=== PATIENT | male | born 1980 | race Caucasian/White ===

== ENCOUNTER 2022-04-22 22:53 | Inpatient (IN) | payer BC, SELFPAY ==
[2022-04-22 23:09] VITALS: BMI 20.3
--- NOTE | 2022-04-22 23:25 | ED_ITS ---
Documented by User: JUAREZ Sanchez 04/24/22 07:20 HPI - Nausea/Vomiting/Diarrhea General: Chief complaint: Nausea/Vomiting/Diarrhea Stated complaint: dehydration, n/v Time Seen by Provider: 04/22/22 22:56 History of Present Illness: Patient is a 41-year-old male comes to the ED with nausea and vomiting. Patient has a history of Crohn's and has had a past bowel resection and currently has an ileostomy. Nausea and vomiting has been going on now for approximately 1 week. He says the nausea vomiting has been on and off for the past week but admits that he has been eating or drinking much since symptoms started. Today he started feeling shaky and generalized malaise and weakness. Endorses increased output and ileostomy bag. patient reports that he feels really dehydrated. He urinated once yesterday and today he produced just a little bit a urine. Denies any fevers, abdominal or back pain. Associated nausea: Yes Associated symtoms: Reports fatigue, malaise and nausea; Denies change in vision, chest pain, dysuria, headache(s) or palpitations Review of Systems Const: Reports: fatigue and malaise; Denies: fever(s) or chills Eyes: Denies: change in vision or eye discomfort ENMT: Denies: throat pain, odynophagia, nasal discharge or nasal congestion Card: Denies: chest pain, palpitations, edema, swelling of feet/ankles, dyspnea on exertion or orthopnea Resp: Denies: dyspnea, productive cough or non-productive cough GI: Reports: nausea and vomiting; Denies: abdominal pain, diarrhea, constipation or hematochezia : Reports: urinary frequency (Decreased urine output); Denies: flank pain, difficulty urinating, dysuria or hematuria Musc: Denies: neck pain, back pain or extremity swelling Skin/Breast: Denies: rash or new lesions Neuro: Reports: involuntary movements (Bilateral hands and arm shaking); Denies: headache(s), numbness in extremities or weakness in extremities PFSH ED PFSH: Medical History Acute renal failure History of Crohn's disease Surgical History H/O ileostomy History of bowel resection Family History Mother Cancer Other Diabetes Hypertension Social History Smoking and tobacco status: never smoked History of recent travel: No Physical Exam Const: COMMON NORMALS: patient oriented x3 and alert GENERAL APPEARANCE: ill appearing HENMT: COMMON NORMALS: normocephalic HEAD & SCALP: normocephalic MOUTH: Normal oral and palatal mucosa present and moist mucous membranes abnormal THROAT: posterior oropharynx normal and uvula midline Eye: COMMON NORMALS: Equal, round and reactive pupils present and conjunctivae normal CONJUNCTIVA: Yes conjunctivae normal PUPIL: Yes Equal, round and reactive pupils present Neck/C-Spine: COMMON NORMALS: supple GENERAL: Yes normal visual inspection Resp: COMMON NORMALS: normal respiratory effort, No retractions, No use of accessory muscles and clear to auscultation bilaterally AUSCULTATION: clear to auscultation bilaterally Cardio: COMMON NORMALS: regular rate, regular rhythm, S1 normal heart sound present, S2 normal heart sound present, No gallops present (Cardio), No clicks present (Cardio), No murmurs present (Cardio) and Peripheral pulses 2+ throughout RATE: regular rate RHYTHM: regular rhythm HEART SOUNDS: S1 normal heart sound present and S2 normal heart sound present PERIPHERAL PULSES: Peripheral pulses 2+ throughout GI: COMMON NORMALS: Normal to inspection, nondistended, normoactive bowel sounds present, Soft to palpation, non-tender and no masses INSPECTION: Yes GI ostomy present PALPATION: Yes Soft to palpation : COMMON NORMALS: Yes no CVA tenderness BLADDER/KIDNEY EXAM: Yes no CVA tenderness Back/Pelvis: COMMON NORMALS: no CVA tenderness Extremity: COMMON NORMALS: normal to inspection Neuro: COMMON NORMALS: patient oriented x3 and moves all extremities SENSORIUM/ORIENTATION: Yes alert Skin: NARRATIVE SKIN EXAM: Patient's skin appears very pale. GENERAL SKIN EXAM: dry skin and pallor Course Vital Signs: Vital signs: Vital Signs Temperature 98.0 F 04/27/22 04:00 Pulse Rate 102 H 04/27/22 07:14 Respiratory Rate 18 04/27/22 07:14 Blood Pressure 96/57 04/27/22 07:14 Pulse Oximetry 95 04/27/22 07:14 MDM - Nausea/Vomiting/Diarrhea Medical Decision Making Patient is a 41-year-old male comes to the ED with nausea and vomiting. Patient has a history of Crohn's and has an ileostomy. Nausea and vomiting symptoms have been going on for a week. Vitals are stable. Patient is pale and ill- appearing. Oral mucous membranes are dry. The rest of exam is benign. Sodium of 116, potassium 7.7 and creatinine of 14.3. EKG showed peaked T waves. After critical lab results, I spoke with Dr. Bingham and he was involved in patient's case due to patient's acuity. Patient was given 2 L of IV fluids, calcium gluconate, insulin, albuterol and D50 amp while here in the ED. Dr. Bingham spoke with Dr. Krause and patient was admitted to hospital. Lab Data I reviewed the patient's lab results. : 04/26/22 07:16 04/27/22 04:44 Radiology Impressions Abdomen/Pelvis CT 04/23/22 00:53 IMPRESSION: 1. One or more nonobstructing right renal calyceal stones. 2. Left ileostomy. 3. Probable previous takedown of right-sided ostomy. 4. Previous resection of the rectum and possibly the entire colon. 5. Right bowel anastomosis consistent with previous partial bowel resection. Laboratory Results WBC 9.7 10^3/uL (4.0-10.0) 04/22/22 21:48 RBC 4.31 10^6/uL (4.1-5.3) 04/22/22 21:48 Hgb 10.9 g/dL (11.7-16.6) L 04/22/22 21:48 Hct 33.4 % (42.0-52.0) L 04/22/22 21:48 MCV 77.5 fl (80-94) L 04/22/22 21:48 MCH 25.3 pg (28.0-34.0) L 04/22/22 21:48 MCHC 32.6 g/dL (30.0-36.0) 04/22/22 21:48 RDW 17.6 % (12.1-15.1) H 04/22/22 21:48 Plt Count 641 10^3/cmm (130-400) H 04/22/22 21:48 MPV 8.2 fL (7.4-10.4) 04/22/22 21:48 Neut % (Auto) 81.4 % 04/22/22 21:48 Lymph % (Auto) 6.5 % 04/22/22 21:48 Slope % (Auto) 10.3 % 04/22/22 21:48 Eos % (Auto) 0.2 % 04/22/22 21:48 Baso % (Auto) 0.3 % 04/22/22 21:48 Neut # (Auto) 7.88 10^3/uL (1.8-7.7) H 04/22/22 21:48 Lymph # (Auto) 0.6 10^3/uL (0.8-4.8) L 04/22/22 21:48 Slope # (Auto) 1.0 10^3/uL (0.2-0.9) H 04/22/22 21:48 Eos # (Auto) 0.0 10^3/uL (0.0-0.8) 04/22/22 21:48 Baso # (Auto) 0.0 10^3/uL (0.0-0.1) 04/22/22 21:48 Nucleated RBC % (auto) 0 % 04/22/22 21:48 Nucleated RBCs # 0.0 /100WBC 04/22/22 21:48 Sodium 116 mmol/L (136-145) L* 04/22/22 21:48 Potassium 7.7 mmol/L (3.5-5.1) H* 04/22/22 21:48 Chloride 60 mmol/L (98-107) L 04/22/22 21:48 Carbon Dioxide 21 mmol/L (22-29) L 04/22/22 21:48 Anion Gap 42.7 (5-19) H 04/22/22 21:48 BUN 109 mg/dL (6-20) H* 04/22/22 21:48 Creatinine 14.3 mg/dL (0.7-1.2) H* 04/22/22 21:48 GFR Calculation 3.9 mL/min (90-130) L 04/22/22 21:48 Glucose 177 mg/dL (65-115) H 04/22/22 21:48 POC Glucose 99 mg/dL (70-110) 04/23/22 02:17 Calculated Osmolality 281 mOsm/kg (285-295) L 04/22/22 21:48 Calcium 9.0 mg/dL (8.5-10.5) 04/22/22 21:48 Total Bilirubin 0.3 mg/dL (0.15-1.2) 04/22/22 21:48 AST 12 U/L (0-40) 04/22/22 21:48 ALT 12 U/L (0-41) 04/22/22 21:48 Alkaline Phosphatase 134 IU/L (40-130) H 04/22/22 21:48 Troponin T Baseline 33 ng/L (0-15) H 04/22/22 21:48 Troponin T 120 Minute 25.65 ng/L (0-15) H 04/23/22 00:38 Delta Troponin T -7.35 ABS# (0-10) L 04/23/22 00:38 Total Protein 10.1 g/dL (6.6-8.7) H 04/22/22 21:48 Albumin 4.7 g/dL (3.5-5.2) 04/22/22 21:48 Globulin 5.4 g/dL (1.3-4.6) H 04/22/22 21:48 Lipase 151 U/L (13-60) H 04/22/22 21:48 Urine Color Yellow (Yellow) 04/23/22 02:40 Urine Appearance Clear (CLEAR) 04/23/22 02:40 Urine pH 7 (5-7) 04/23/22 02:40 Ur Specific [place] 1.010 (1.005-1.030) 04/23/22 02:40 Urine Protein 1+ (Negative) H 04/23/22 02:40 Urine Glucose (UA) Norm (Normal) 04/23/22 02:40 Urine Ketones Negative (Negative) 04/23/22 02:40 Urine Blood 3+ (Negative) H 04/23/22 02:40 Urine Nitrate Negative (Negative) 04/23/22 02:40 Urine Bilirubin Neg (Negative) 04/23/22 02:40 Urine Urobilinogen Norm mg/dL (Negative) 04/23/22 02:40 Ur Leukocyte Esterase Negative (Negative) 04/23/22 02:40 Urine RBC 0-4 /hpf (0-2) H 04/23/22 02:40 Urine WBC 0-4 /hpf (0-5) H 04/23/22 02:40 Ur Eosinophil Smear 0 (0-0) 04/23/22 02:40 Ur Squamous Epith Cells 0-4 /hpf (0-5) H 04/23/22 02:40 Amorphous Sediment 1+ /hpf 04/23/22 02:40 Urine Bacteria Trace /hpf (NONE) 04/23/22 02:40 Hyaline Casts 0-4 /lpf H 04/23/22 02:40 Urine Mucus Trace /hpf 04/23/22 02:40 Urine Eosinophils No eosinophils seen 04/23/22 02:40 Urine Osmolality 347 mOsm/kg (50-1200) 04/23/22 02:40 Ur Random Creatinine 92 mg/dL (20-320) 04/23/22 02:40 Ur Random Albumin 14 % 04/23/22 02:40 U Random Total Protein 115 mg/dL (5-25) H 04/23/22 02:40 Ur Random Sodium 13 mmol/L 04/23/22 02:40 Ur Random Potassium 84 mmol/L 04/23/22 02:40 Ur Random Chloride 14 mmol/L 04/23/22 02:40 Urine Creatinine 94 mg/dL (39-259) 04/23/22 02:40 Protein/Creatinin Ratio 1250 mg/g creat (22-128) H 04/23/22 02:40 Protein/Creat Ratio 24h 1.250 (0.022-0.128) H 04/23/22 02:40 U Random m-0-Oajtzzhr % 14 % 04/23/22 02:40 U Random r-7-Uyznhmmv % 29 % 04/23/22 02:40 U Random Beta Globulin 32 % 04/23/22 02:40 U Random Gamma Glob 11 % 04/23/22 02:40 U Abnormal Prot Band 1 Not Reportable 04/23/22 02:40 U Abnormal Prot Band 2 Not Reportable 04/23/22 02:40 U Abnormal Prot Band 3 Not Reportable 04/23/22 02:40 Urine PEP Interpret See note 04/23/22 02:40 EKG Data EKG 1: EKG interpretation date: 04/22/22 Interpretation: Sinus rhythm 99 bpm, peaked T waves noted. No ST segment elevation or depression seen. Discharge Plan Discharge Patient Disposition: Admitted As Inpatient Admit Provider: Ethan Krause Clinical Impression: Acute renal failure, Hyperkalemia, Metabolic acidosis Condition: Stable Coding Level of Care Code ED Oil Laboratory Analyst for Chg Fwd Exam Comprehensive Documented by User: Hao Bingham, 04/27/22 08:16 HPI - Nausea/Vomiting/Diarrhea General: Chief complaint: Nausea/Vomiting/Diarrhea Stated complaint: dehydration, n/v Time Seen by Provider: 04/22/22 22:56 PFSH ED PFSH: Medical History Acute renal failure History of Crohn's disease Surgical History H/O ileostomy History of bowel resection Family History Mother Cancer Other Diabetes Hypertension Social History Smoking and tobacco status: never smoked History of recent travel: No Course Vital Signs: Vital signs: Vital Signs Temperature 98.0 F 04/27/22 04:00 Pulse Rate 102 H 04/27/22 07:14 Respiratory Rate 18 04/27/22 07:14 Blood Pressure 96/57 04/27/22 07:14 Pulse Oximetry 95 04/27/22 07:14 MDM - Nausea/Vomiting/Diarrhea Medical Decision Making Patient is a 41-year-old male comes to the ED with nausea and vomiting. Patient has a history of Crohn's and has an ileostomy. Nausea and vomiting symptoms have been going on for a week. Vitals are stable. Patient is pale and ill- appearing. Oral mucous membranes are dry. The rest of exam is benign. Sodium of 116, potassium 7.7 and creatinine of 14.3. EKG showed peaked T waves. After critical lab results, I spoke with Dr. Bingham and he was involved in patient's case due to patient's acuity. Patient was given 2 L of IV fluids, calcium gluconate, insulin, albuterol and D50 amp while here in the ED. Dr. Bingham spoke with Dr. Krause and patient was admitted to hospital. This patient was originally seen by Mr. Jason PA-C. I agree with this history, evaluation, and treatment. Lab Data : 04/26/22 07:16 04/27/22 04:44 Radiology Impressions Abdomen/Pelvis CT 04/23/22 00:53 IMPRESSION: 1. One or more nonobstructing right renal calyceal stones. 2. Left ileostomy. 3. Probable previous takedown of right-sided ostomy. 4. Previous resection of the rectum and possibly the entire colon. 5. Right bowel anastomosis consistent with previous partial bowel resection. Laboratory Results WBC 9.7 10^3/uL (4.0-10.0) 04/22/22 21:48 RBC 4.31 10^6/uL (4.1-5.3) 04/22/22 21:48 Hgb 10.9 g/dL (11.7-16.6) L 04/22/22 21:48 Hct 33.4 % (42.0-52.0) L 04/22/22 21:48 MCV 77.5 fl (80-94) L 04/22/22 21:48 MCH 25.3 pg (28.0-34.0) L 04/22/22 21:48 MCHC 32.6 g/dL (30.0-36.0) 04/22/22 21:48 RDW 17.6 % (12.1-15.1) H 04/22/22 21:48 Plt Count 641 10^3/cmm (130-400) H 04/22/22 21:48 MPV 8.2 fL (7.4-10.4) 04/22/22 21:48 Neut % (Auto) 81.4 % 04/22/22 21:48 Lymph % (Auto) 6.5 % 04/22/22 21:48 Slope % (Auto) 10.3 % 04/22/22 21:48 Eos % (Auto) 0.2 % 04/22/22 21:48 Baso % (Auto) 0.3 % 04/22/22 21:48 Neut # (Auto) 7.88 10^3/uL (1.8-7.7) H 04/22/22 21:48 Lymph # (Auto) 0.6 10^3/uL (0.8-4.8) L 04/22/22 21:48 Slope # (Auto) 1.0 10^3/uL (0.2-0.9) H 04/22/22 21:48 Eos # (Auto) 0.0 10^3/uL (0.0-0.8) 04/22/22 21:48 Baso # (Auto) 0.0 10^3/uL (0.0-0.1) 04/22/22 21:48 Nucleated RBC % (auto) 0 % 04/22/22 21:48 Nucleated RBCs # 0.0 /100WBC 04/22/22 21:48 Sodium 116 mmol/L (136-145) L* 04/22/22 21:48 Potassium 7.7 mmol/L (3.5-5.1) H* 04/22/22 21:48 Chloride 60 mmol/L (98-107) L 04/22/22 21:48 Carbon Dioxide 21 mmol/L (22-29) L 04/22/22 21:48 Anion Gap 42.7 (5-19) H 04/22/22 21:48 BUN 109 mg/dL (6-20) H* 04/22/22 21:48 Creatinine 14.3 mg/dL (0.7-1.2) H* 04/22/22 21:48 GFR Calculation 3.9 mL/min (90-130) L 04/22/22 21:48 Glucose 177 mg/dL (65-115) H 04/22/22 21:48 POC Glucose 99 mg/dL (70-110) 04/23/22 02:17 Calculated Osmolality 281 mOsm/kg (285-295) L 04/22/22 21:48 Calcium 9.0 mg/dL (8.5-10.5) 04/22/22 21:48 Total Bilirubin 0.3 mg/dL (0.15-1.2) 04/22/22 21:48 AST 12 U/L (0-40) 04/22/22 21:48 ALT 12 U/L (0-41) 04/22/22 21:48 Alkaline Phosphatase 134 IU/L (40-130) H 04/22/22 21:48 Troponin T Baseline 33 ng/L (0-15) H 04/22/22 21:48 Troponin T 120 Minute 25.65 ng/L (0-15) H 04/23/22 00:38 Delta Troponin T -7.35 ABS# (0-10) L 04/23/22 00:38 Total Protein 10.1 g/dL (6.6-8.7) H 04/22/22 21:48 Albumin 4.7 g/dL (3.5-5.2) 04/22/22 21:48 Globulin 5.4 g/dL (1.3-4.6) H 04/22/22 21:48 Lipase 151 U/L (13-60) H 04/22/22 21:48 Urine Color Yellow (Yellow) 04/23/22 02:40 Urine Appearance Clear (CLEAR) 04/23/22 02:40 Urine pH 7 (5-7) 04/23/22 02:40 Ur Specific [place] 1.010 (1.005-1.030) 04/23/22 02:40 Urine Protein 1+ (Negative) H 04/23/22 02:40 Urine Glucose (UA) Norm (Normal) 04/23/22 02:40 Urine Ketones Negative (Negative) 04/23/22 02:40 Urine Blood 3+ (Negative) H 04/23/22 02:40 Urine Nitrate Negative (Negative) 04/23/22 02:40 Urine Bilirubin Neg (Negative) 04/23/22 02:40 Urine Urobilinogen Norm mg/dL (Negative) 04/23/22 02:40 Ur Leukocyte Esterase Negative (Negative) 04/23/22 02:40 Urine RBC 0-4 /hpf (0-2) H 04/23/22 02:40 Urine WBC 0-4 /hpf (0-5) H 04/23/22 02:40 Ur Eosinophil Smear 0 (0-0) 04/23/22 02:40 Ur Squamous Epith Cells 0-4 /hpf (0-5) H 04/23/22 02:40 Amorphous Sediment 1+ /hpf 04/23/22 02:40 Urine Bacteria Trace /hpf (NONE) 04/23/22 02:40 Hyaline Casts 0-4 /lpf H 04/23/22 02:40 Urine Mucus Trace /hpf 04/23/22 02:40 Urine Eosinophils No eosinophils seen 04/23/22 02:40 Urine Osmolality 347 mOsm/kg (50-1200) 04/23/22 02:40 Ur Random Creatinine 92 mg/dL (20-320) 04/23/22 02:40 Ur Random Albumin 14 % 04/23/22 02:40 U Random Total Protein 115 mg/dL (5-25) H 04/23/22 02:40 Ur Random Sodium 13 mmol/L 04/23/22 02:40 Ur Random Potassium 84 mmol/L 04/23/22 02:40 Ur Random Chloride 14 mmol/L 04/23/22 02:40 Urine Creatinine 94 mg/dL (39-259) 04/23/22 02:40 Protein/Creatinin Ratio 1250 mg/g creat (22-128) H 04/23/22 02:40 Protein/Creat Ratio 24h 1.250 (0.022-0.128) H 04/23/22 02:40 U Random a-2-Ezemdupk % 14 % 04/23/22 02:40 U Random q-2-Lhujljqs % 29 % 04/23/22 02:40 U Random Beta Globulin 32 % 04/23/22 02:40 U Random Gamma Glob 11 % 04/23/22 02:40 U Abnormal Prot Band 1 Not Reportable 04/23/22 02:40 U Abnormal Prot Band 2 Not Reportable 04/23/22 02:40 U Abnormal Prot Band 3 Not Reportable 04/23/22 02:40 Urine PEP Interpret See note 04/23/22 02:40 Discharge Plan Discharge Patient Disposition: Admitted As Inpatient Admit Provider: Ethan Krause Clinical Impression: Acute renal failure, Hyperkalemia, Metabolic acidosis Condition: Stable Coding Level of Care Code ED Oil Laboratory Analyst for Chg Fwd Exam Comprehensive
--- NOTE | 2022-04-22 23:28 | ECG_ITS ---
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 Measurements Intervals [place] Rate: 99 P: 83 DC: 183 QRS: 49 QRSD: 101 T: 54 QT: 337 QTc: 434 Interpretive Statements SINUS RHYTHM Peaked T waves No previous ECG available for comparison Electronically Signed On 04-23-2022 9:23:07 CDT by Alejandro Ballesteros M.D. [id number] f
[2022-04-22 23:43] LABS: Basophils % 0.3 %; Eosinophils % 0.2 %; Hematocrit 33.4 % (42.0-52.0); Hemoglobin 10.9 g/dL (11.7-16.6); Lymphocytes # 0.6 10^3/uL (0.8-4.8); Lymphocytes % 6.5 %; Mean Corpuscular HGB Conc 32.6 g/dL (30.0-36.0); Mean Corpuscular Hemoglobin 25.3 pg (28.0-34.0); Mean Corpuscular Volume 77.5 fl (80-94); Mean Platelet Volume 8.2 fL (7.4-10.4); Monocytes % 10.3 %; Neutrophils # 7.88 10^3/uL (1.8-7.7); Neutrophils % 81.4 %; Nucleated Red Blood Cells % 0 %; Platelet Count 641 10^3/cmm (130-400); Red Blood Count 4.31 10^6/uL (4.1-5.3); Red Cell Distribution Width 17.6 % (12.1-15.1); White Blood Count 9.7 10^3/uL (4.0-10.0)
[2022-04-23] VITALS (27 sets, daily range): BP systolic 84–120; BP diastolic 42–70; PULSE 86–124; RESP 11–25; TEMP 36.8–37.1; O2SAT 94–100
[2022-04-23] LABS: Troponin(5th) Baseline 33 ng/L (0-15)
[2022-04-23 00:02] LABS: Alanine Aminotransferase 12 U/L (0-41); Albumin Level 4.7 g/dL (3.5-5.2); Alkaline Phosphatase 134 IU/L (40-130); Anion Gap 42.7 (5-19); Aspartate Amino Transferase 12 U/L (0-40); Carbon Dioxide 21 mmol/L (22-29); Chloride 60 mmol/L (98-107); Globulin 5.4 g/dL (1.3-4.6); Glomerular Filtration Rate 3.9 mL/min (90-130); Glucose 177 mg/dL (65-115); Lipase 151 U/L (13-60); Osmolality Calculated 281 mOsm/kg (285-295); Total Bilirubin 0.3 mg/dL (0.15-1.2); Total Protein 10.1 g/dL (6.6-8.7)
[2022-04-23 00:05] LABS: Blood Urea Nitrogen 109 mg/dL (6-20); Potassium 7.7 mmol/L (3.5-5.1); Sodium 116 mmol/L (136-145)
[2022-04-23] MEDS: ondansetron 2 mg/ML SDV 2 mL 4 MG IVP (00:19)
[2022-04-23] MEDS: insulin regular-human 100 units/1 mL 10 UNIT IVP (00:36)
[2022-04-23] MEDS: sodium chloride 0.9% 1,000 ML 999 ML IV (00:36)
[2022-04-23] MEDS: dextrose 50% syringe 50 mL IVP ×2 (00:38→01:53)
[2022-04-23] MEDS: calcium gluconate 0.9% NaCL 1 GM/50 ML PREMIX IV (00:39)
--- NOTE | 2022-04-23 00:53 | CTR_ITS ---
PROCEDURE INFORMATION: Exam: CT Abdomen And Pelvis Without Contrast Exam date and time: 04/23/2022 2:06 AM Age: 41 years old Clinical indication: Abnormal findings; Abnormal lab test; Abnormal kidney function lab tests; Vomiting; Prior surgery; Surgery date: 6+ months; Surgery type: Bowel resection, ileostomy; Additional info: Vomiting, acute renal failure TECHNIQUE: Imaging protocol: Computed tomography of the abdomen and pelvis without contrast. Radiation optimization: All CT scans at this facility use at least one of these dose optimization techniques: automated exposure control; mA and/or kV adjustment per patient size (includes targeted exams where dose is matched to clinical indication); or iterative reconstruction. COMPARISON: No relevant prior studies available. RADIATION DOSE METRICS: Total DLP (mGy-cm): 731.49 FINDINGS: Liver: Normal. No mass. Gallbladder and bile ducts: Normal. No calcified stones. No ductal dilation. Pancreas: Normal. No ductal dilation. Spleen: Normal. No splenomegaly. Adrenal glands: Normal. No mass. Kidneys and ureters: One or more nonobstructing right renal calyceal stones. Stomach and bowel: Left ileostomy. Probable previous takedown of right-sided ostomy. Previous resection of the rectum and possibly the entire colon. Right bowel anastomosis consistent with previous partial bowel resection. Appendix: No evidence of appendicitis. Intraperitoneal space: Unremarkable. No free air. No significant fluid collection. Vasculature: Unremarkable. No abdominal aortic aneurysm. Lymph nodes: Unremarkable. No enlarged lymph nodes. Urinary bladder: Unremarkable as visualized. Reproductive: Unremarkable as visualized. Bones/joints: Levoscoliosis. Soft tissues: Unremarkable. CT/CT abdomen pelvis [facility] [id number] IMPRESSION: 1. One or more nonobstructing right renal calyceal stones. 2. Left ileostomy. 3. Probable previous takedown of right-sided ostomy. 4. Previous resection of the rectum and possibly the entire colon. 5. Right bowel anastomosis consistent with previous partial bowel resection.
[2022-04-23 01:10] LABS: Glucose Point of Care 139 mg/dL (70-110)
[2022-04-23 01:12] LABS: Troponin 5 2HR 25.65 ng/L (0-15)
[2022-04-23 01:28] LABS: Glucose Point of Care 75 mg/dL (70-110)
--- NOTE | 2022-04-23 01:28 | ECG_ITS ---
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 Measurements Intervals [place] Rate: 111 P: 84 UT: 163 QRS: 42 QRSD: 68 T: 60 QT: 300 QTc: 408 Interpretive Statements SINUS TACHYCARDIA LOW QRS VOLTAGE IN EXTREMITY LEADS [QRS DEFLECTION < 0.5 mV IN LIMB LEADS] Peaked T waves ABNORMAL RHYTHM ECG Compared to ECG 04/22/2022 23:13:08 Low QRS voltage now present Sinus rhythm no longer present Electronically Signed On 04-23-2022 9:28:46 CDT by Alejandro Ballesteros M.D. [id number]
[2022-04-23] MEDS: levalbuterol 0.63 mg/3 mL Neb INHALATION (01:30)
--- NOTE | 2022-04-23 02:36 | PM.HP ---
Providers/Chief Complaint Primary Care Provider: Karen Christianson MD Chief Complaint: dehydration, n/v History of Present Illness Amilcar Chapin is a 41 year old male with a past medical history of Crohn's disease, diagnosed when he was 12 years old, has status post colectomy, ileostomy bag in place, history of type 2 diabetes mellitus, intolerant to metformin, not on insulin, history of chronic prednisone use, secondary to Crohn's disease, stopped in July who presents [facility] due to fatigue, malaise, lightheadedness, dehydration, nausea, vomiting. Patient tells me that recently he has not been feeling well, he does not exactly know why, but just has not been feeling well has been having intermittent lightheadedness, dizziness. No chest pain. No palpitations. No shortness of breath. No abdominal pain. No dysuria. No hematuria. But he does tell me that he felt that he was not hydrating enough, he felt nauseous and felt like he was going to vomit. No sick contacts, no recent travel. No history of acute kidney injury. No history of renal failure. Review of Systems Const: Reports: fatigue and malaise; Denies: fever(s) or chills Eyes: Denies: change in vision or blurry vision ENMT: Denies: nasal congestion Card: Reports: pre-syncope; Denies: chest pain or palpitations Resp: Denies: dyspnea, productive cough, non-productive cough or wheezing GI: Reports: nausea and vomiting; Denies: abdominal pain, hematemesis, diarrhea, constipation, hematochezia or melena : Denies: flank pain, difficulty urinating, dysuria or urinary frequency Musc: Denies: neck pain or back pain Skin/Breast: Denies: rash Neuro: Denies: headache(s), dizziness or vertigo Endo: Denies: polyuria or polydipsia Medications/Allergies Home Medications Medication Instructions Recorded Confirmed Last Taken Type ascorbic acid (vitamin C) 500 mg mg PO DAILY cap 05/04/21 12/12/21 Unknown History capsule calcium carbonate 500 mg calcium 500 mg PO DAILY 05/04/21 12/12/21 Unknown History (1,250 mg) tablet (Calcium 500) cyanocobalamin (vitamin B-12) 1,000 mcg PO DAILY 05/04/21 12/12/21 Unknown History 1,000 mcg/mL oral drops fluoxetine 20 mg capsule (Prozac) 20 mg PO DAILY 05/04/21 12/12/21 Unknown History folic acid 1 mg tablet 1 mg PO DAILY 05/04/21 12/12/21 Unknown History multivitamin (Daily Multi-Vitamin) 1 tab PO DAILY 05/04/21 12/12/21 Unknown History ferrous fumarate 324 mg (106 mg 324 mg PO BID tab 07/04/21 12/12/21 Unknown History iron) tablet mecobalamin (vitamin B12) 1,000 1,000 mcg SUBLINGUAL DAILY 07/04/21 12/12/21 Unknown History mcg disintegrating tablet,sublingual clindamycin phosphate 1 % lotion 1 applic TOPICAL QAM #60 ml 11/10/21 12/12/21 Unknown Rx doxycycline hyclate 100 mg capsule 100 mg PO DAILY #30 cap 12/12/21 12/12/21 Unknown Rx Allergies Allergy/AdvReac Type Severity Reaction Status Date / Time ciprofloxacin [From Cipro] Allergy perpheral Verified 12/12/21 08:19 neuropathy levofloxacin [From Levaquin] Allergy unk Verified 12/12/21 08:19 penicillin G Allergy hives Verified 12/12/21 08:19 sulfamethoxazole Allergy Hives Verified 12/12/21 08:19 [From Bactrim] trimethoprim [From Bactrim] Allergy Hives Verified 12/12/21 08:19 encort Allergy suicidal Uncoded 12/12/21 08:19 thoughts PFSH Acute PFSH: Medical History (Updated 04/23/22 @ 02:42 by Ethan Krause MD) Acute renal failure History of Crohn's disease Surgical History H/O ileostomy History of bowel resection Family History Mother Cancer Other Diabetes Hypertension Social History Smoking and tobacco status: never smoked History of recent travel: No Vitals/I&O/Wt Last Vital Signs Pulse 110 H 04/23/22 01:37 Resp 16 04/23/22 01:33 Pulse Ox 100 04/23/22 01:33 Weight last 48 hrs Weight 58.967 kg Physical Exam Const: COMMON NORMALS: no acute distress and patient oriented x3 HENMT: COMMON NORMALS: normocephalic HEAD & SCALP: normocephalic Eye: COMMON NORMALS: Equal, round and reactive pupils present and EOMs intact bilaterally Neck/C-Spine: COMMON NORMALS: no JVD Resp: COMMON NORMALS: normal respiratory effort, No retractions, No use of accessory muscles and clear to auscultation bilaterally AUSCULTATION: clear to auscultation bilaterally Cardio: COMMON NORMALS: no JVD, regular rate, regular rhythm, S1 normal heart sound present and S2 normal heart sound present RATE: regular rate RHYTHM: regular rhythm HEART SOUNDS: S1 normal heart sound present and S2 normal heart sound present GI: COMMON NORMALS: Normal to inspection, nondistended, normoactive bowel sounds present, Soft to palpation, non-tender, No hepatosplenomegaly present, no masses and no bruits PALPATION: Yes Soft to palpation and Yes No hepatosplenomegaly present OTHER: Colostomy bag in place ileostomy bag in place Extremity: COMMON NORMALS: capillary refill normal, no clubbing, cyanosis or edema, no calf tenderness and no pedal edema Neuro: COMMON NORMALS: patient oriented x3, CN's II-XII intact bilaterally and moves all extremities Psych: COMMON NORMALS: mental status grossly normal Data : 04/22/22 21:48 04/22/22 21:48 A&P Assessment and plan (1) Hyperkalemia: Status: Acute (2) Hyponatremia: Status: Acute (3) Metabolic acidosis: Status: Acute (4) Obstructive uropathy: Status: Acute (5) Acute renal failure: Status: Acute (6) Crohn disease: Status: Acute Plan Acute renal failure, - hyperkalemia, metabolic acidosis, hyponatremia, hypoglycemia -Etiology unclear, possibly secondary to dehydration -Does have enlarged bladder on CT imaging, [facility] possible obstructive uropathy -Does have Crohn's disease -Possibly will require a renal biopsy -Start IV fluids -Is hypoglycemic, D5 normal saline -Serum sodiums every 4 hours -Neurochecks -Will need to consult nephrology in the a.m. -Has received calcium gluconate, dextrose, fluids -I have confirmed with patient that he is DNR/DNI, father at bedside -Lovenox for DVT prophylaxis Attestations Medical Necessity Statement*: Patient requires hospitalization inpatient, greater than 2 minutes, acute renal failure, hypoglycemia Coding Level of Care Code Acute Electronic Coils Supervisor for Chg Fwd Diagnoses Hyperkalemia E87.5 Hyponatremia E87.1 Metabolic acidosis E87.2 Obstructive uropathy N13.9 Acute renal failure N17.9 Crohn disease K50.90
[2022-04-23 03:08] LABS: Add Urine Microscopic? YES; Amorphous Sediment Urine 1+ /hpf; Bacteria Urine TRACE /hpf; Bilirubin Urine Neg (Negative); Blood Urine 3+ (Negative); Glucose Urine UA Norm (Normal); Hyaline Casts Urine 0-4 /lpf; Ketones Urine Negative (Negative); Leukocyte Esterase Urine Negative (Negative); Mucus Urine TRACE /hpf; Nitrate Urine Negative (Negative); Protein Urine 1+ (Negative); RBC Urine 0-4 /hpf (0-2); Squamous Epithelial Cell Urine 0-4 /hpf (0-5); Urine Appearance Clear (CLEAR); Urine Color Yellow (Yellow); Urobilinogen Urine Norm (Negative); WBC Urine 0-4 /hpf (0-5); pH Urine 7 (5-7)
[2022-04-23 03:09] LABS: Add Urine Culture? No
[2022-04-23 03:17] LABS: Potassium, Radom Urine 84 mmol/L; Urine Creatinine 94 mg/dL (39-259); Urine Random Chloride 14 mmol/L; Urine Random Sodium 13 mmol/L
[2022-04-23] MEDS: dextrose 5% 1,000 ML 150 ML IV (03:18)
[2022-04-23 03:31] LABS: Eosinophil Urine No Eosinophils Seen; Urine Eosinophil Count 0 (0-0)
[2022-04-23 04:17] LABS: Glucose Point of Care 103 mg/dL (70-110)
--- NOTE | 2022-04-23 04:30 | PC.NURSE ---
Pt has chronic wound on left buttocks, leakage from previous rectal surgery. Pt educated regarding enlarged bladder, obstructive uropathy, and possible bladder rupture. Pt continues to refuse aleman catheter. Pt educated regarding SCD use and Lovenox for DVT prophylaxis, but continues to refuse both. Pt has tremors of all extremities and reports that it is related to anxiety.
[2022-04-23] MEDS: dextrose 5% 1,000 ML 125 ML IV (04:52)
--- NOTE | 2022-04-23 04:53 | PC.NURSE ---
IVF infusing at 125 mls/hr.
[2022-04-23] MEDS: pantoprazole 40 mg SDV IVP (04:56)
--- NOTE | 2022-04-23 05:28 | ECG_ITS ---
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 Measurements Intervals [place] Rate: 103 P: 99 WY: 143 QRS: 157 QRSD: 74 T: 119 QT: 333 QTc: 436 Interpretive Statements SINUS TACHYCARDIA ARM LEADS REVERSED [INVERTED P AND QRS IN I] ABNORMAL RHYTHM ECG Compared to ECG 04/23/2022 01:21:51 No significant changes Electronically Signed On 04-23-2022 9:29:32 CDT by Alejandro Ballesteros M.D. [id number]
--- NOTE | 2022-04-23 06:00 | PC.NURSE ---
Pt has no complaints of nausea at this time. Pt continues to refuse aleman catheter, SCDs, and Lovenox. Education reinforced.
[2022-04-23 06:22] LABS: Erythrocyte Sedimentation Rate 49 mm/hr (0-10)
[2022-04-23 06:26] LABS: Ketone (Acetest) Serum Negative (Negative)
[2022-04-23 06:28] LABS: Troponin 5 6HR 35.51 ng/L (0-15)
[2022-04-23 06:29] LABS: Troponin 5 6HR Delta 2.51 ng/L (0-12)
[2022-04-23 06:31] LABS: Glucose Point of Care 94 mg/dL (70-110)
[2022-04-23 06:35] LABS: Alanine Aminotransferase 8 U/L (0-41); Albumin Level 3.3 g/dL (3.5-5.2); Alkaline Phosphatase 87 IU/L (40-130); Anion Gap 26.9 (5-19); Aspartate Amino Transferase 13 U/L (0-40); C Reactive Protein 58.1 mg/L (0.0-4.9); Calcium 7.4 mg/dL (8.5-10.5); Carbon Dioxide 23 mmol/L (22-29); Chloride 76 mmol/L (98-107); Estmated Average Glucose 189; Globulin 3.6 g/dL (1.3-4.6); Glomerular Filtration Rate 4.5 mL/min (90-130); Glucose 79 mg/dL (65-115); Hemoglobin A1C 8.2 % (4.0-6.0); Lactic Sepsis W/Reflex 0.9 mmol/L (0.5-2.2); Magnesium 1.8 mg/dL (1.7-2.3); Osmolality Calculated 279 mOsm/kg (285-295); Potassium 4.9 mmol/L (3.5-5.1); Sodium 121 mmol/L (136-145); Thyroid Stimulating Hormone 0.55 uIU/mL (0.27-4.20); Total Bilirubin 0.3 mg/dL (0.15-1.2); Total Protein 6.9 g/dL (6.6-8.7)
--- NOTE | 2022-04-23 06:50 | PC.NURSE ---
Bedside report completed with VLAD Epperson
[2022-04-23 06:56] LABS: Blood Urea Nitrogen 92 mg/dL (6-20); Phosphorus 13.2 mg/dL (2.5-4.5)
[2022-04-23 07:00] LABS: Glucose Point of Care 99 mg/dL (70-110)
[2022-04-23 08:16] LABS: Sodium 120 mmol/L (136-145)
--- NOTE | 2022-04-23 10:33 | P.CONIM_ITS ---
Providers/Reason For Consult Consulting Physician/Specialty*: Nephro Reason for Consult*: AMRCIE Attending Physician: Ethan Krause MD Primary Care Provider: Karen Christianson MD History of Present Illness History of Present Illness Thank for consultation, today the pleasure of reviewing this 41-year-old gentleman for evaluation of acute kidney injury. Reports that over the last week or so he has been progressively getting weaker, unwell but somewhat vaguely. He is not eating or drinking. Output from the ostomy however has been normal for him, emptying it regularly throughout the day with light brown stool. He was so weak he presented to the hospital where he was found to have overt kidney failure with a serum creatinine of 14.3, potassium 7.7 sodium 116 bicarb 21 with an anion gap of 42.7 and a lactic acid of 0.9. He received liberal IV hydration, and his creatinine already improved to 12.5 mg/dL with an anion gap already coming down to 26.9. He was hypoglycemic and has since been transitioned to D5W. His sodium level was 116 to begin with, went up to 121 and is now 120. Hemodynamically he has been labile with soft blood pressures following hospitalization, his last blood pressure measured at 86/56 with a pulse of 105. Urine output has been reasonable, producing 600 mL over the last nursing shift. No history of acute or chronic kidney disease, is never seen a kidney specialist or required dialysis. In June of last year creatinine 0.92 mg/dL as an outpatient. He denies any recent exposure to potentially nephrotoxic substances including intravenous contrast anti-inflammatory medication antibiotics etc. No extremity edema, shortness of breath or other hypervolemic symptoms. No uremic symptoms. Medications/Allergies Home Medications Medication Instructions Recorded Confirmed Last Taken Type ascorbic acid (vitamin C) 500 mg mg PO DAILY cap 05/04/21 12/12/21 Unknown History capsule calcium carbonate 500 mg calcium 500 mg PO DAILY 05/04/21 12/12/21 Unknown History (1,250 mg) tablet (Calcium 500) cyanocobalamin (vitamin B-12) 1,000 mcg PO DAILY 05/04/21 12/12/21 Unknown History 1,000 mcg/mL oral drops fluoxetine 20 mg capsule (Prozac) 20 mg PO DAILY 05/04/21 12/12/21 Unknown History folic acid 1 mg tablet 1 mg PO DAILY 05/04/21 12/12/21 Unknown History multivitamin (Daily Multi-Vitamin) 1 tab PO DAILY 05/04/21 12/12/21 Unknown History ferrous fumarate 324 mg (106 mg 324 mg PO BID tab 07/04/21 12/12/21 Unknown History iron) tablet mecobalamin (vitamin B12) 1,000 1,000 mcg SUBLINGUAL DAILY 07/04/21 12/12/21 Unknown History mcg disintegrating tablet,sublingual clindamycin phosphate 1 % lotion 1 applic TOPICAL QAM #60 ml 11/10/21 12/12/21 Unknown Rx doxycycline hyclate 100 mg capsule 100 mg PO DAILY #30 cap 12/12/21 12/12/21 Unknown Rx Allergies Allergy/AdvReac Type Severity Reaction Status Date / Time ciprofloxacin [From Cipro] Allergy perpheral Verified 12/12/21 08:19 neuropathy levofloxacin [From Levaquin] Allergy unk Verified 12/12/21 08:19 penicillin G Allergy hives Verified 12/12/21 08:19 sulfamethoxazole Allergy Hives Verified 12/12/21 08:19 [From Bactrim] trimethoprim [From Bactrim] Allergy Hives Verified 12/12/21 08:19 encort Allergy suicidal Uncoded 12/12/21 08:19 thoughts Current Medications Generic Name Dose Route Start Last Admin Trade Name Freq PRN Reason Stop Dose Admin Dextrose/Sodium Chloride 1,000 mls @ 125 mls/hr 04/23/22 03:26 04/23/22 04:53 Dextrose 5%-Sod Chloride 0.9% IV Not Given .Q8H BETSY Pantoprazole Sodium 40 mg 04/23/22 03:30 04/23/22 04:56 Pantoprazole 40 Mg Sdv IVP 40 mg Q24H BETSY Administration PFSH Acute PFSH: Medical History (Updated 04/23/22 @ 02:42 by Ethan Krause MD) Acute renal failure History of Crohn's disease Surgical History H/O ileostomy History of bowel resection Family History Mother Cancer Other Diabetes Hypertension Social History Smoking and tobacco status: never smoked History of recent travel: No Vitals/I&O/Wt Last Vital Signs Temp 98.7 F 04/23/22 07:30 Pulse 105 H 04/23/22 08:30 Resp 17 04/23/22 08:30 BP 86/56 04/23/22 08:30 Pulse Ox 100 04/23/22 08:30 04/22/22 04/23/22 04/23/22 22:59 06:59 14:59 Intake Total 1282.5 / 1282.5 Output Total 600 / 600 350 / 350 Balance 682.5 / 682.5 -350 / -350 Weight last 48 hrs Weight 59.965 kg Weight 58.967 kg Physical Exam Narrative: Constitutional: Awake, comfortable HEENT: Wet mucosa, no jvp, non icteric Lungs: Bilaterally clear without discernible wheeze, rales in all lung zones CVS: S1 S2, no murmurs Abdo: Soft, BS ok, ostomy noted Ext 4: Minimal edema, peripheral perfusion with no cyanosis Neurological: Grossly non-focal Data : 04/22/22 21:48 04/23/22 07:45 A&P Assessment and plan (1) Acute renal failure: 1. Acute kidney injury Fully consistent with prerenal azotemia given his history of very poor p.o. intake but normal ostomy output Renal function is already improving with creatinine already dropping from 14.3 down to 12.5 over the space a few hours following the administration of intravenous fluid Continue liberal IV fluid he still hemodynamically labile and would likely benefit from further volume repletion. As renal function is already improving, no need for further diagnostic testing. Of note kidneys look good on CT scan. Strict I's and O's Dose medication for GFR less than 15 Avoid usual nephrotoxins 2. Chemistry Critical hyperkalemia on admission, now temporized Hyponatremia on admission, currently brought up to 120, continue close monitoring of this ideally no more than 6-8 increase in 24 hours however he still obviously volume depleted and will benefit from isotonic intravenous fluid We will give D5W with lactated Ringer's at 125 mL/h Repeat BMP later on this afternoon 3. Nutrition Progress diet per medical team Aquiles Beauchamp MD Nephrology [phone] Patient seen and examined via telemedicine, with the assistance of the bedside RN > 25 min spent in evaluation and mgmt of patient Aquiles Beauchamp MD Nephrology [phone] Status: Acute Coding Level of Care Code Acute Director Operations Broadcast for Chg Fwd Diagnoses Acute renal failure N17.9
[2022-04-23] MEDS: dextrose 5%-lactated ringers 1,000 ML 125 ML IV ×2 (11:39→19:17)
[2022-04-23] MEDS: hydrocortisone 100 mg/2 mL SDV IVP ×2 (11:39→21:33)
[2022-04-23 12:54] LABS: Sodium 119 mmol/L (136-145)
[2022-04-23 14:50] LABS: Anion Gap 23.5 (5-19); Blood Urea Nitrogen 74 mg/dL (6-20); Calcium 7.3 mg/dL (8.5-10.5); Carbon Dioxide 24 mmol/L (22-29); Chloride 76 mmol/L (98-107); Glomerular Filtration Rate 5.9 mL/min (90-130); Glucose 95 mg/dL (65-115); Osmolality Calculated 270 mOsm/kg (285-295); Potassium 4.5 mmol/L (3.5-5.1)
--- NOTE | 2022-04-23 14:53 | PM.MISC ---
Miscellaneous Note Note: Patient was examined Patient is stating that he has been noticing high output from his ostomy bag He has not noticed any vomiting however endorsing nausea He was on steroids for pyoderma gangrenosum which she stopped after tapering dose a month ago Patient looks dehydrated Oxygen back full of liquid stool Abdomen is soft Healing ulcer groin and perineal area Awake and alert Nonfocal neuro exam Schedule Assessment and plan Give stress dose steroids Check cortisol level Continue IV fluids Nephro consultation Will re discuss goals of care
[2022-04-23 15:07] LABS: Sodium 119 mmol/L (136-145)
--- NOTE | 2022-04-23 18:52 | PC.NURSE ---
Pt rested in bed throughout shift. Pt denied pain. NO nausea or vomiting this shift. Pt's diet was advanced. Urine output of 1625 this shift. Ostomy appliance changed this shift. Bedside report completed with VLAD Epperson
[2022-04-23 20:55] LABS: Sodium 122 mmol/L (136-145)
[2022-04-24] VITALS (25 sets, daily range): BP systolic 90–115; BP diastolic 48–75; PULSE 82–138; RESP 14–23; TEMP 36.6–36.9; O2SAT 93–100
--- NOTE | 2022-04-24 01:34 | PC.NURSE ---
Assited pt with changing ileostomy wafer and bag due to leakage. Pt brought own supplies from home.
--- NOTE | 2022-04-24 02:29 | PC.NURSE ---
Pt resting quietly in bed with eyes closed, snoring loudly.
[2022-04-24] MEDS: dextrose 5%-lactated ringers 1,000 ML 125 ML IV (03:13)
[2022-04-24] MEDS: pantoprazole 40 mg SDV IVP (03:13)
--- NOTE | 2022-04-24 03:48 | PC.NURSE ---
Pt's buttocks, groin, and axillae are covered in scars from healed pyoderma gangrenosum.
[2022-04-24 05:16] LABS: Basophils % 0.2 %; Hematocrit 23.4 % (42.0-52.0); Hemoglobin 7.5 g/dL (11.7-16.6); Lymphocytes # 0.3 10^3/uL (0.8-4.8); Mean Corpuscular HGB Conc 32.1 g/dL (30.0-36.0); Mean Corpuscular Hemoglobin 25.2 pg (28.0-34.0); Mean Corpuscular Volume 78.5 fl (80-94); Monocytes # 0.5 10^3/uL (0.2-0.9); Monocytes % 7.7 %; Neutrophils # 5.46 10^3/uL (1.8-7.7); Neutrophils % 85.7 %; Nucleated Red Blood Cells % 0 %; Platelet Count 335 10^3/cmm (130-400); Red Blood Count 2.98 10^6/uL (4.1-5.3); Red Cell Distribution Width 17.7 % (12.1-15.1); White Blood Count 6.4 10^3/uL (4.0-10.0)
[2022-04-24 05:31] LABS: Alanine Aminotransferase 9 U/L (0-41); Albumin Level 3.3 g/dL (3.5-5.2); Alkaline Phosphatase 81 IU/L (40-130); Anion Gap 18.4 (5-19); Aspartate Amino Transferase 13 U/L (0-40); Blood Urea Nitrogen 62 mg/dL (6-20); Calcium 7.5 mg/dL (8.5-10.5); Carbon Dioxide 27 mmol/L (22-29); Chloride 83 mmol/L (98-107); Creatine Phosphokinase 208 U/L (39-308); Ferritin 591 ng/mL (30-400); Globulin 3.6 g/dL (1.3-4.6); Glomerular Filtration Rate 9.9 mL/min (90-130); Glucose 112 mg/dL (65-115); Lactate (Lactic Acid level) 1.8 mmol/L (0.5-2.2); Magnesium 1.3 mg/dL (1.7-2.3); Osmolality Calculated 278 mOsm/kg (285-295); Phosphorus 6.6 mg/dL (2.5-4.5); Potassium 3.4 mmol/L (3.5-5.1); Sodium 125 mmol/L (136-145); Total Bilirubin 0.2 mg/dL (0.15-1.2); Total Protein 6.9 g/dL (6.6-8.7)
--- NOTE | 2022-04-24 08:31 | PC.NURSE ---
Rounding with Dr. Cartagena, verbal order to decrease dextrose and LR from 125mls/hr to 100mls/hr. Order followed.
[2022-04-24] MEDS: magnesium oxide 400 mg tablet PO (08:47)
[2022-04-24] MEDS: potassium chloride ER 20 mEq Tablet 40 MEQ PO (08:47)
--- NOTE | 2022-04-24 09:28 | P.PN_ITS ---
Subjective Subjective: This morning patient is endorsing feeling better, his output from ostomy bag has reduced I did give him stress dose steroids yesterday, blood pressure is better, he did not require vasopressors Hemodynamically stable, transfer out of ICU Decrease the rate of fluids to 100 mL/h we will follow with nephrology Hyponatremia gradual improvement Patient is stating that he has not felt this good in quite some time Vitals/I&O/Wt Last Vital Signs Temp 98.1 F 04/24/22 07:30 Pulse 113 H 04/24/22 08:00 Resp 16 04/24/22 08:00 BP 115/61 04/24/22 08:00 Pulse Ox 99 04/24/22 07:30 04/23/22 04/24/22 04/24/22 22:59 06:59 14:59 Intake Total 1194.167 / 2961.667 1231.667 / 4193.334 882.417 / 882.417 Output Total 1825 / 3175 1000 / 4175 400 / 400 Balance -630.833 / -213.333 231.667 / 18.334 482.417 / 482.417 Weight last 48 hrs Weight 59.965 kg Weight 58.967 kg Physical Exam Narrative: Patient laying comfortably in his bed Supine Well-hydrated Very pleasant and cooperative Happy with his progress Hemodynamically stable Sinus tachycardia, S1, S2 Pyoderma gangrenosum healing ulcer perineal and right groin area Ostomy bag half filled with liquid stool Abdomen soft Dental caries Nonfocal neuro exam Saturating well on room air Data : 04/24/22 04:25 04/24/22 04:25 Micro: Microbiology 04/23/22 02:40 Urine Culture - Preliminary Urine,Voided A&P Assessment and plan (1) Crohn disease: Status: Acute (2) Metabolic acidosis: Status: Acute (3) Hyponatremia: Status: Acute (4) Hyperkalemia: Status: Acute (5) Acute renal failure: Status: Acute Plan Dehydration with prerenal azotemia:- Nephro recommendations appreciated Hypokalemia, hypomagnesemia: Repleted with lower doses because of creatinine of 6.3, would avoid higher doses for now Albumin 3.3, calcium 7.5, check PTH and vitamin D Phosphorus is high related to acute renal failure Responding to IV fluid hydration adequate urine output Hyponatremia hypovolemia:- Dehydration related Sodium 125 today gradual improvement of sodium noted Prerenal Hemoglobin 7.5, microcytic anemia, check iron studies, repeat H&H no active GI bleed Likely lab error repeat H&H Hypomagnesemia: Repleted Patient is hemodynamically stable, can be transferred out of ICU to [facility] Will follow up with Dr. Beauchamp recommendations Renal nondialysis diet Attestations Medical Necessity Statement*: Transfer out of ICU Time Spent in Patient Care: 30mins Coding Level of Care Code Acute Soa Integration Developer for Chg Fwd Diagnoses Crohn disease K50.90 Metabolic acidosis E87.2 Hyponatremia E87.1 Hyperkalemia E87.5 Acute renal failure N17.9
--- NOTE | 2022-04-24 10:09 | PC.CHAP ---
Pastoral Care Encounter/Spiritual Assessment Type of Contact [] Declined occupational therapy technician visit [] Patient/Family/Request visit [] Outpatient visit [] Follow-up visit [] Physician referral [] Code/Alert [x] Routine visit [] Staff referral [] Actively dying [] Patient sleeping [] Family support [] [] Out of room [] Palliative care [] [] Receiving care in room [] Pre-surgical visit [] Trauma [] Long length of stay [x] ICU visit [] Other: Relational/Emotional Strength [] Patient feels connected with others/family/visitors/staff [] Distress [] Loneliness/isolation [] Abandonment Spirituality of Patient [] Person of Swati [] Attends Latter-Day of their Swati [] Believes in Prayer [] Reads Bible or Christianity materials [] There are Spiritual issues to be addressed Net Front End Developer Interventions [x] Prayer [x] Active listening [x] Non-anxious presence [x] Spiritual/emotional support [] Crisis/trauma care [] Spiritual counseling [] Bereavement support [] Provided bereavement packet [] Provided Bible/devotional materials [] Provided toy/stuffed animal, coloring book to patient or family member [] Provided Communion [] Anointing/[place] [] Salvation [x] Completed spiritual assessment [] Other: Impact on Illness or Injury [] Angry [] Fearful [] Anxious [] Often cries [] Exhaustion [] Unable to work [] Unable to attend yazidi [] Unable to walk/stand [] Unable to read [] Unable to drive [] Unable to eat/drink [] Unable to sleep [] Unable to be with family [] Patient intubated [] Other: Summary patient not a strong swati person... but wanted prayer for healing and recovery Time spent with patient 5 min
[2022-04-24] MEDS: dextrose 5%-lactated ringers 1,000 ML 100 ML IV ×2 (10:48→18:46)
--- NOTE | 2022-04-24 11:08 | PM.PN ---
Subjective Subjective: No new issues with child today. He feels much better, very hungry now. Output from ostomy seems to be slowing down, good urine output. No extremity edema, shortness of breath or other hypervolemic symptoms. No uremic symptoms. Overall feeling much better, happy with his care so far. Vitals/I&O/Wt Last Vital Signs Temp 98.1 F 04/24/22 07:30 Pulse 113 H 04/24/22 08:00 Resp 16 04/24/22 08:00 BP 115/61 04/24/22 08:00 Pulse Ox 99 04/24/22 07:30 04/23/22 04/24/22 04/24/22 22:59 06:59 14:59 Intake Total 1194.167 / 2961.667 1231.667 / 4193.334 1112.417 / 1112.417 Output Total 1825 / 3175 1000 / 4175 700 / 700 Balance -630.833 / -213.333 231.667 / 18.334 412.417 / 412.417 Weight last 48 hrs Weight 59.965 kg Weight 58.967 kg Physical Exam Narrative: Constitutional: Awake, comfortable HEENT: Wet mucosa, no jvp, non icteric Lungs: Bilaterally clear without discernible wheeze, rales in all lung zones CVS: S1 S2, no murmurs Abdo: Soft, BS ok, ostomy noted Ext 4: Minimal edema, peripheral perfusion with no cyanosis Neurological: Grossly non-focal Data : 04/24/22 04:25 04/24/22 04:25 Micro: Microbiology 04/23/22 02:40 Urine Culture - Preliminary Urine,Voided A&P Assessment and plan (1) Acute renal failure: 1. Acute kidney injury Fully consistent with prerenal azotemia given his history of very poor p.o. intake but normal ostomy output Renal function improving nicely Strict I's and O's Dose medication for GFR less than 15 Avoid usual nephrotoxins 2. Chemistry Improving nicely; K/Mg replacement, 3. Nutrition Progress diet per medical team - DC in next day or so Aquiles Beauchamp MD Nephrology [phone] Patient seen and examined via telemedicine, with the assistance of the bedside RN > 25 min spent in evaluation and mgmt of patient Aquiles Beauchamp MD Nephrology [phone] Status: Acute Attestations Medical Necessity Statement*: eval for MARCIE Coding Level of Care Code Acute Department Chair for g Fwd Diagnoses Acute renal failure N17.9
[2022-04-24 12:04] LABS: COMPLEMENT, TOTAL (CH50) >60 U/mL (31-60)
[2022-04-24 12:33] LABS: COMPLEMENT COMPONENT C3C 91 mg/dL (82-185); COMPLEMENT COMPONENT C4C 36 mg/dL (15-53)
[2022-04-24 14:18] LABS: THYROID PEROXIDASE ANTIBODIES 1 IU/mL (<9)
[2022-04-24 16:13] LABS: CENTROMERE B ANTIBODY <1.0 NEG AI (<1.0 NEG); JO-1 ANTIBODY <1.0 NEG AI (<1.0 NEG); RNP ANTIBODY <1.0 NEG AI (<1.0 NEG); SCL-70 ANTIBODY <1.0 NEG AI (<1.0 NEG); SJOGREN'S ANTIBODY (SS-A) <1.0 NEG AI (<1.0 NEG); SM ANTIBODY <1.0 NEG AI (<1.0 NEG); SS-B <1.0 NEG AI (<1.0 NEG)
[2022-04-24 16:53] LABS: Hematocrit 23.2 % (42.0-52.0); Hemoglobin 7.5 g/dL (11.7-16.6)
--- NOTE | 2022-04-24 21:43 | PC.NURSE ---
Called report to Bessie [facility]U. All questions answered. Patient is accepting of transfer. Packed up his stuff and transfered him to [facility].
[2022-04-25] VITALS (7 sets, daily range): BP systolic 90–100; BP diastolic 50–58; PULSE 100–128; RESP 16–17; TEMP 36.6–37.4; O2SAT 91–100
[2022-04-25 04:46] LABS: Basophils # 0.1 10^3/uL (0.0-0.1); Basophils % 0.5 %; Eosinophils % 0.4 %; Hematocrit 23.1 % (42.0-52.0); Hemoglobin 7.4 g/dL (11.7-16.6); Lymphocytes # 0.8 10^3/uL (0.8-4.8); Lymphocytes % 8.3 %; Mean Corpuscular Hemoglobin 25.3 pg (28.0-34.0); Mean Corpuscular Volume 79.1 fl (80-94); Mean Platelet Volume 7.7 fL (7.4-10.4); Monocytes # 1.2 10^3/uL (0.2-0.9); Monocytes % 11.6 %; Neutrophils # 7.83 10^3/uL (1.8-7.7); Neutrophils % 77.9 %; Nucleated Red Blood Cells % 0 %; Platelet Count 355 10^3/cmm (130-400); Red Blood Count 2.92 10^6/uL (4.1-5.3); Red Cell Distribution Width 17.6 % (12.1-15.1)
[2022-04-25] MEDS: dextrose 5%-lactated ringers 1,000 ML 100 ML IV ×2 (04:58→11:31)
[2022-04-25 05:05] LABS: Lactate (Lactic Acid level) 1.5 mmol/L (0.5-2.2)
[2022-04-25 05:07] LABS: Alanine Aminotransferase 9 U/L (0-41); Alkaline Phosphatase 77 IU/L (40-130); Anion Gap 17.4 (5-19); Aspartate Amino Transferase 12 U/L (0-40); Blood Urea Nitrogen 37 mg/dL (6-20); Calcium 7.8 mg/dL (8.5-10.5); Carbon Dioxide 26 mmol/L (22-29); Chloride 90 mmol/L (98-107); Creatine Phosphokinase 99 U/L (39-308); Ferritin 524 ng/mL (30-400); Globulin 3.8 g/dL (1.3-4.6); Glomerular Filtration Rate 16.3 mL/min (90-130); Glucose 133 mg/dL (65-115); Magnesium 1.1 mg/dL (1.7-2.3); Osmolality Calculated 281 mOsm/kg (285-295); Phosphorus 3.9 mg/dL (2.5-4.5); Potassium 3.4 mmol/L (3.5-5.1); Sodium 130 mmol/L (136-145); Total Bilirubin 0.2 mg/dL (0.15-1.2); Total Protein 6.8 g/dL (6.6-8.7)
[2022-04-25] MEDS: LORazepam 2 mg Tablet PO (05:48)
[2022-04-25] MEDS: potassium chloride ER 20 mEq Tablet 40 MEQ PO ×2 (08:13→11:32)
[2022-04-25] MEDS: sodium chloride 0.9% 500 ML IV (08:13)
[2022-04-25] MEDS: magnesium oxide 400 mg tablet PO (08:13)
--- NOTE | 2022-04-25 11:37 | PM.PN ---
Subjective Subjective: Amilcar feels little sluggish today, slightly worse than yesterday. Blood pressure was a little low this morning. Good urine output. Ostomy is working well. Eating and drinking well. Hemodynamics look otherwise okay except for a slight drop this morning. No uremic symptoms. Vitals/I&O/Wt Last Vital Signs Temp 99.2 F 04/25/22 11:23 Pulse 128 H 04/25/22 11:23 Resp 16 04/25/22 11:23 BP 93/54 04/25/22 11:23 Pulse Ox 98 04/25/22 11:23 04/24/22 04/25/22 04/25/22 22:59 06:59 14:59 Intake Total 1018.667 / 2353.084 1000 / 3353.084 1715 / 1715 Output Total 1400 / 2100 500 / 2600 Balance -381.333 / 253.084 500 / 589.593 2687 / 1715 Physical Exam Narrative: Constitutional: Awake, comfortable HEENT: Wet mucosa, no jvp, non icteric Lungs: Bilaterally clear without discernible wheeze, rales in all lung zones CVS: S1 S2, no murmurs Abdo: Soft, BS ok, ostomy noted Ext 4: Minimal edema, peripheral perfusion with no cyanosis Neurological: Grossly non-focal Data : 04/25/22 04:30 04/25/22 04:30 Micro: Microbiology 04/23/22 02:40 Urine Culture - Final Urine,Voided A&P Assessment and plan (1) Acute renal failure: 1. Acute kidney injury Fully consistent with prerenal azotemia given his history of very poor p.o. intake but normal ostomy output Renal function improving nicely OK to DC ivf if eating and drinking later today Strict I's and O's Dose medication for GFR less than 15 Avoid usual nephrotoxins 2. Chemistry Improving nicely; K/Mg replacement, reordered today 3. Nutrition Progress diet per medical team 4. Disposition He feels a little sluggish this morning his blood pressure did drop down a little bit, seems to be responding to intravenous fluid now. From my own perspective, his kidney function continues to rapidly improve and so he can be discharged at the discretion of the hospitalist team. Would recommend a lab test with his outpatient primary care provider in 1-2 weeks following discharge to review his kidney function. It is any residual chronic kidney disease, he should then be referred to Dr. Neely's outpatient nephrology clinic. As renal issues are now resolving I will sign off his care at this time. As always, we appreciate our involvement in his care. Aquiles Beauchamp MD Nephrology [phone] Patient seen and examined via telemedicine, with the assistance of the bedside RN > 25 min spent in evaluation and mgmt of patient Aquiles Beauchamp MD Nephrology [phone] Status: Acute Attestations Medical Necessity Statement*: eval for MARCIE Coding Level of Care Code Acute Financial Sales Advisor for Chg Fwd Diagnoses Acute renal failure N17.9
--- NOTE | 2022-04-25 11:53 | PM.PN ---
Subjective Subjective: Patient is stating that he is experiencing anxiety spells Blood pressure this morning soft, will give him albumin along fluid bolus Change D5 LR to normal saline Sodium 130 Requested fecal occult blood test Hemoglobin 7.4 patient is stating that in the past he received iron for his iron deficiency anemia Vitals/I&O/Wt Last Vital Signs Temp 99.2 F 04/25/22 11:23 Pulse 128 H 04/25/22 11:23 Resp 16 04/25/22 11:23 BP 93/54 04/25/22 11:23 Pulse Ox 98 04/25/22 11:23 04/24/22 04/25/22 04/25/22 22:59 06:59 14:59 Intake Total 1018.667 / 2353.084 1000 / 3353.084 1715 / 1715 Output Total 1400 / 2100 500 / 2600 Balance -381.333 / 253.084 500 / 368.432 2468 / 1715 Physical Exam Narrative: Patient euvolemic Pale complexion Nonfocal neuro exam Saturating well on room air Endorsing anxiety Abdomen soft Endorsing decreased output from ostomy Tolerating his diet Saturating well on room air Pyoderma gangrenosum ulcer well-healing granulation tissue Data : 04/25/22 04:30 04/25/22 04:30 Micro: Microbiology 04/23/22 02:40 Urine Culture - Final Urine,Voided A&P Assessment and plan (1) Crohn disease: Status: Acute (2) Hyponatremia: Status: Acute (3) Hyperkalemia: Status: Acute (4) Acute renal failure: Status: Acute (5) Metabolic acidosis: Status: Acute (6) Anxiety: Status: Acute (7) Microcytic anemia: Status: Acute Plan Acute on chronic microcytic anemia No signs of GI blood loss Check fecal occult blood test Check iron panel I might give him IV iron Ferritin high secondary to anemia of chronic disease Hypotension related to dehydration I will give him a bag of albumin Patient does has malnourishment Mild malnourishment Change IV fluids to normal saline MARCIE and hyponatremia Prerenal Related to dehydration Change fluids to normal saline TSH normal Cortisol normal Creatinine improving with IV fluid hydration Depression, anxiety Xanax for as needed use along Prozac Renal nondialysis diet Attestations Medical Necessity Statement*: Discharge in next 48 hours if clinically stable Time Spent in Patient Care: 30mins Coding Level of Care Code Acute Regulatory Associate for Chg Fwd Diagnoses Crohn disease K50.90 Hyponatremia E87.1 Hyperkalemia E87.5 Acute renal failure N17.9 Metabolic acidosis E87.2 Anxiety F41.9 Microcytic anemia D50.9
[2022-04-25] MEDS: magnesium sulfate premix 2 GM/50 ML PIGGYBACK IV (12:00)
[2022-04-25 12:58] LABS: Creatinine, Random Urine 92 mg/dL (20-320); Protein, Total, Random 115 mg/dL (5-25); Protein/Creatinine Ratio 1250 mg/g creat (22-128)
[2022-04-25 13:42] LABS: Iron 32 ug/dL (59-158)
[2022-04-25] MEDS: sodium chloride 0.9% 1,000 ML 100 ML IV (14:23)
[2022-04-25] MEDS: albumin 12.5 GM/250 ML VIAL IV (14:26)
[2022-04-25] MEDS: iron sucrose 200 MG in sodium chloride 0.9% (100 ml) 100 ML 220 MG IV (15:36)
[2022-04-25 15:47] LABS: Osmolality Urine 347 mOsm/kg (50-1200)
[2022-04-25 16:02] LABS: ANA SCREEN, IFA NEGATIVE (NEGATIVE)
[2022-04-25] MEDS: ALPRAZolam 0.5 mg Tablet PO (20:57)
[2022-04-26] VITALS (19 sets, daily range): BP systolic 90–132; BP diastolic 56–68; PULSE 60–120; RESP 14–20; TEMP 36.3–36.9; O2SAT 95–100
[2022-04-26] MEDS: sodium chloride 0.9% 1,000 ML 100 ML IV ×3 (02:11→17:50)
[2022-04-26 06:29] LABS: Alanine Aminotransferase 9 U/L (0-41); Albumin Level 2.5 g/dL (3.5-5.2); Alkaline Phosphatase 84 IU/L (40-130); Aspartate Amino Transferase 13 U/L (0-40); Blood Urea Nitrogen 28 mg/dL (6-20); Calcium 8.2 mg/dL (8.5-10.5); Carbon Dioxide 23 mmol/L (22-29); Chloride 96 mmol/L (98-107); Creatine Phosphokinase 51 U/L (39-308); Glomerular Filtration Rate 23.4 mL/min (90-130); Glucose 72 mg/dL (65-115); Lactate (Lactic Acid level) 0.8 mmol/L (0.5-2.2); Magnesium 1.7 mg/dL (1.7-2.3); Osmolality Calculated 278 mOsm/kg (285-295); Phosphorus 2.9 mg/dL (2.5-4.5); Sodium 132 mmol/L (136-145); Total Bilirubin 0.2 mg/dL (0.15-1.2); Total Protein 6.5 g/dL (6.6-8.7)
[2022-04-26 07:10] LABS: Anion Gap 16.3 (5-19); Potassium 3.3 mmol/L (3.5-5.1)
[2022-04-26 07:37] LABS: Basophils % 0.5 %; Eosinophils # 0.2 10^3/uL (0.0-0.8); Eosinophils % 2.3 %; Hematocrit 21.6 % (42.0-52.0); Hemoglobin 6.8 g/dL (11.7-16.6); Lymphocytes # 0.8 10^3/uL (0.8-4.8); Lymphocytes % 12.3 %; Mean Corpuscular HGB Conc 31.5 g/dL (30.0-36.0); Mean Corpuscular Hemoglobin 25.2 pg (28.0-34.0); Mean Platelet Volume 7.8 fL (7.4-10.4); Neutrophils # 4.36 10^3/uL (1.8-7.7); Neutrophils % 67.9 %; Nucleated Red Blood Cells % 0 %; Platelet Count 316 10^3/cmm (130-400); Red Cell Distribution Width 18.1 % (12.1-15.1); White Blood Count 6.4 10^3/uL (4.0-10.0)
[2022-04-26] MEDS: magnesium oxide 400 mg tablet PO (08:54)
[2022-04-26] MEDS: fluoxetine 20 mg Capsule PO (08:54)
--- NOTE | 2022-04-26 12:05 | PM.PN ---
Subjective Subjective: Hg low, ordered two units of blood He received 1 bag of iron yesterday Protonix 40 mg IV twice daily Dr. Stone notified patient has eaten his lunch, asked him to stay n.p.o. until evaluated by Dr. Stone Vitals/I&O/Wt Last Vital Signs Temp 97.8 F 04/26/22 08:00 Pulse 120 H 04/26/22 08:00 Resp 16 04/26/22 08:00 BP 97/59 04/26/22 08:00 Pulse Ox 95 04/26/22 08:00 04/25/22 04/26/22 04/26/22 22:59 06:59 14:59 Intake Total 1650 / 3485 1240 / 4725 711.667 / 711.667 Output Total 300 / 450 Balance 1350 / 3035 1240 / 4275 711.667 / 711.667 Physical Exam Narrative: Pale complexion Hemodynamically stable Patient is walking in the hallway No orthostasis Blood pressure soft Abdomen soft Nonfocal neuro exam Saturating well on room air Endorsing improvement in his mood Data : 04/26/22 07:16 04/26/22 05:51 Micro: Microbiology 04/25/22 12:10 Occult Blood (FIT) - Final Stool Routine Collection 04/23/22 02:40 Urine Culture - Final Urine,Voided A&P Assessment and plan (1) Microcytic anemia: Status: Acute (2) Anxiety: Status: Acute (3) Crohn disease: Status: Acute (4) Hyponatremia: Status: Acute (5) Hyperkalemia: Status: Acute (6) Acute renal failure: Status: Acute Plan Acute on chronic GI blood loss anemia microcytic anemia Hemoglobin dropped to 6.8, will give him 2 units of blood He has received 1 bag of iron yesterday He also has iron deficiency FOBT positive Concern for steroid related gastric ulcer FOBT positive Has requested Dr. Stone for evaluation and EGD He has eaten his lunch, we will keep him n.p.o. Protonix 40 mg IV twice daily He also received 1 bag of albumin MARCIE related to dehydration Improving High output from ileostomy: Improved Normal TSH and cortisol Avoid steroids Hyponatremia: Improved with IV fluid hydration It was repleted gradually Appreciate nephro recommendations Electrolyte imbalance: Repleted Patient is agreeable for EGD N.p.o. DVT prophylaxis on hold Attestations Medical Necessity Statement*: Discharge tomorrow after EGD Time Spent in Patient Care: 30min Coding Level of Care Code Acute Testboard Operator for Chg Fwd Diagnoses Microcytic anemia D50.9 Anxiety F41.9 Crohn disease K50.90 Hyponatremia E87.1 Hyperkalemia E87.5 Acute renal failure N17.9
[2022-04-26] MEDS: pantoprazole 40 mg SDV IVP ×2 (15:00→21:34)
[2022-04-26] MEDS: iron polysaccharide complex 150 mg Capsule PO (17:50)
[2022-04-26 18:38] LABS: Albumin,Urine Random 14 %; Alpha-1-Globulins Urine Random 14 %; Alpha-2-Globulins Urine Random 29 %; Beta-Globulin,Urine Random 32 %; Gamma Globulin,Urine Random 11 %
--- NOTE | 2022-04-26 18:59 | P.CONIM_ITS ---
Providers/Reason For Consult Consulting Physician/Specialty*: Endoscopist Reason for Consult*: Acute anemia with a presumed GI source Attending Physician: Odalys Cartagena MD Primary Care Provider: Karen Christianson MD History of Present Illness History of Present Illness Amilcar Chapin is a 41 year old male with severe Crohn's disease who presented to the hospital in acute renal failure likely a result of dehydration. After hydration, his creatinine and BUN have improved dramatically. During his hydration process, his hemoglobin dropped and continued to drop as his kidney function improved. While hemoglobin was dropping, the patient stated that he was feeling much better. Today he states he feels much better than he did coming into the hospital despite having a hemoglobin that is dropped to 6.8 which is down from his hemoglobin of 10.9 on the day of admission. The patient has not noted any dana blood in his ostomy bag. He is also not noted any change to the texture or color of the stool in his ostomy bag during his hospital stay. The patient has a history of being mildly anemic and having low iron. In December his hemoglobin was 11.4, with low iron studies as well. He is unaware of any obvious bleeding at that time. Patient reports not being on any NSAIDs or aspirin. He says he takes Tylenol for pain if necessary. The patient has a history of being on prednisone for several months last year but ended his prednisone usage in July. He has not had any prednisone since that time. Review of Systems General: Reports: 10 or more systems reviewed and unremarkable except in HPI and below Const: Denies: fever(s) Card: Denies: chest pain or irregular heart rhythm Resp: Denies: dyspnea GI: Reports: abdominal pain (Mild. He thinks this is related to the food he ate); Denies: nausea, vomiting, hematemesis, coffee ground emesis, dysphagia, hear tburn, hematochezia or melena Medications/Allergies Home Medications Medication Instructions Recorded Confirmed Last Taken Type ascorbic acid (vitamin C) 500 mg 500 mg PO DAILY cap 05/04/21 04/23/22 Unknown History capsule calcium carbonate 500 mg calcium 500 mg PO DAILY 05/04/21 04/23/22 Unknown History (1,250 mg) tablet (Calcium 500) cyanocobalamin (vitamin B-12) 1,000 mcg PO DAILY 05/04/21 04/23/22 Unknown Hi story 1,000 mcg/mL oral drops fluoxetine 20 mg capsule (Prozac) 20 mg PO DAILY 05/04/21 04/23/22 Unknown History folic acid 1 mg tablet 1 mg PO DAILY 05/04/21 04/23/22 Unknown History multivitamin (Daily Multi-Vitamin) 1 tab PO DAILY 05/04/21 04/23/22 Unknown History ferrous fumarate 324 mg (106 mg 324 mg PO BID tab 07/04/21 04/23/22 Unknown History iron) tablet mecobalamin (vitamin B12) 1,000 1,000 mcg SUBLINGUAL DAILY 07/04/21 04/23/22 Unknown History mcg disintegrating tablet,sublingual clindamycin phosphate 1 % lotion 1 applic TOPICAL QAM #60 ml 11/10/21 04/23/22 Unknown Rx Allergies Allergy/AdvReac Type Severity Reaction Status Date / Time ciprofloxacin [From Cipro] Allergy perpheral Verified 12/12/21 08:19 neuropathy levofloxacin [From Levaquin] Allergy unk Verified 12/12/21 08:19 penicillin G Allergy hives Verified 12/12/21 08:19 sulfamethoxazole Allergy Hives Verified 12/12/21 08:19 [From Bactrim] trimethoprim [From Bactrim] Allergy Hives Verified 12/12/21 08:19 encort Allergy suicidal Uncoded 12/12/21 08:19 thoughts Current Medications Generic Name Dose Route Start Last Admin Trade Name Freq PRN Reason Stop Dose Admin Alprazolam 0.5 mg 04/25/22 11:51 04/25/22 20:57 Alprazolam 0.5 Mg Tablet PO 0.5 mg TID PRN Administration ANXIETY Enoxaparin Sodium 30 mg 04/23/22 21:00 04/24/22 20:59 Enoxaparin 30 Mg/0.3 Ml Syringe SUBCUT Not Given Q24H BETSY Fluoxetine HCl 20 mg 04/26/22 09:00 04/26/22 08:54 Fluoxetine 20 Mg Capsule PO 20 mg DAILY BETSY Administration Sodium Chloride 1,000 mls @ 100 mls/hr 04/25/22 12:00 04/26/22 17:50 Sodium Chloride 0.9% IV 100 mls/hr .Q10H BETSY Administration Magnesium Oxide 400 mg 04/24/22 09:00 04/26/22 08:54 Magnesium Oxide 400 Mg Tablet PO 400 mg DAILY BETSY Administration Pantoprazole Sodium 40 mg 04/26/22 12:05 04/26/22 15:00 Pantoprazole 40 Mg Sdv IVP 40 mg BID@0900,2100 BETSY Administration Polysaccharide Iron Complex 150 mg 04/26/22 18:00 04/26/22 17:50 Iron Polysaccharide Complex 150 Mg Capsule PO 150 mg BIDWM BETSY Administration PFSH Acute PFSH: Medical History (Updated 04/26/22 @ 19:30 by Brian Stone MD) Acute renal failure History of Crohn's disease Surgical History H/O ileostomy History of bowel resection Family History Mother Cancer Other Diabetes Hypertension Social History Smoking and tobacco status: never smoked History of recent travel: No Vitals/I&O/Wt Last Vital Signs Temp 97.6 F 04/26/22 18:55 Pulse 101 H 04/26/22 18:55 Resp 16 04/26/22 18:55 BP 90/59 04/26/22 18:55 Pulse Ox 100 04/26/22 18:55 04/26/22 04/26/22 04/26/22 06:59 14:59 22:59 Intake Total 1240 / 4725 1191.667 / 6114.778 0442.333 / 2565.000 Output Total 1300 / 1300 Balance 1240 / 4275 1191.667 / 1191.667 73.333 / 1265.000 Physical Exam Const: COMMON NORMALS: no acute distress and patient oriented x3 GENERAL APPEARANCE: cooperative, comfortable and well developed HENMT: COMMON NORMALS: normocephalic and moist oral mucous membranes HEAD & SCALP: normocephalic Chest: COMMONS NORMALS: normal inspection of the chest Resp: COMMON NORMALS: normal respiratory effort and clear to auscultation bila terally AUSCULTATION: clear to auscultation bilaterally Cardio: COMMON NORMALS: regular rate, regular rhythm, No gallops present (Cardio), No murmurs present (Cardio) and No rub (Cardio) RATE: regular rate RHYTHM: regular rhythm GI: COMMON NORMALS: Soft to palpation INSPECTION: Yes scar (Right side of abdomen) and Yes GI ostomy present PALPATION: Yes Soft to palpation Extremity: COMMON NORMALS: normal to inspection Neuro: COMMON NORMALS: patient oriented x3 and no focal motor deficits Skin: COMMON NORMALS: no rashes or lesions noted GENERAL SKIN EXAM: no rashes or lesions noted Data : 04/26/22 07:16 04/26/22 05:51 A&P Assessment and plan (1) Microcytic anemia: The source of the patient's anemia is unclear, but I doubt that it is acute. He came in to the hospital with acute renal failure likely secondary to profound dehydration. In that setting 1 would expect a drop in hemoglobin that could be 2-4 points. His occult stool was positive, but due to his Crohn's disease, he may have occult positive stools even when he is not having significant bleeding. The fact that the patient feels so much better now despite having a hemoglobin of 6.9 would also argue that he has been chronically anemic. The fact that his anemia is microcytic has been a chronic condition, and does not speak to acute or chronic anemia in his case. He has appropriately been given a transfusion of packed red blood cells. He may also benefit from a transfusion of iron in the future. Regardless, the etiology of his anemia is unknown at this time. He does not believe he has had any endoscopy performed in the last decade. He would benefit from an EGD to look for the most likely source of anemia which would be an upper GI bleed. Because it is likely this is a chronic problem, if we do not find a source for his bleeding during the EGD, he may be best served by being referred back to his health sciences program coordinator for further evaluation of his small bowel for possible insidious chronic bleeding. Especially in light of the fact that this may very well be a chronic anemia. I discussed with the patient the benefits and risks of proceeding with an EGD. We discussed the risks of bleeding, and perforation. He had no further questions and wishes to proceed. He will be made n.p.o. after 3 AM and we are planning on proceeding with EGD at 12:00 noon. Status: Acute (2) Crohn disease: Due to having a colectomy, he has required no treatment in the past year. It appears that his chronic symptoms have largely been found in his large intestine as well as the portion of the ileum near the ileocecal valve. We will defer any other treatment decisions to his health sciences program coordinator. Status: Acute (3) Acute renal failure: Responding well to rehydration. Status: Acute Consult Attestations Medical Necessity Statement: Defer to hospitalist Coding Level of Care Code Acute Principle Industrial Hygienist for Chg Fwd Diagnoses Microcytic anemia D50.9 Crohn disease K50.90 Acute renal failure N17.9
[2022-04-26] MEDS: ALPRAZolam 0.5 mg Tablet PO (22:48)
[2022-04-27] VITALS (14 sets, daily range): BP systolic 95–108; BP diastolic 57–68; PULSE 0–102; RESP 16–21; TEMP 36.3–37.3; O2SAT 95–100
[2022-04-27 05:37] LABS: Basophils % 0.6 %; Eosinophils # 0.2 10^3/uL (0.0-0.8); Eosinophils % 3.8 %; Hematocrit 28.4 % (42.0-52.0); Lymphocytes # 0.7 10^3/uL (0.8-4.8); Mean Corpuscular HGB Conc 33.1 g/dL (30.0-36.0); Mean Corpuscular Hemoglobin 26.5 pg (28.0-34.0); Monocytes % 15.8 %; Neutrophils # 4.26 10^3/uL (1.8-7.7); Neutrophils % 67.2 %; Nucleated Red Blood Cells % 0 %; Platelet Count 274 10^3/cmm (130-400); Red Blood Count 3.55 10^6/uL (4.1-5.3); Red Cell Distribution Width 16.7 % (12.1-15.1); White Blood Count 6.3 10^3/uL (4.0-10.0)
[2022-04-27] MEDS: sodium chloride 0.9% 1,000 ML 100 ML IV ×2 (05:50→13:03)
[2022-04-27 06:11] LABS: Blood Urea Nitrogen 19 mg/dL (6-20); Calcium 8.2 mg/dL (8.5-10.5); Carbon Dioxide 26 mmol/L (22-29); Chloride 97 mmol/L (98-107); Glomerular Filtration Rate 31.8 mL/min (90-130); Glucose 67 mg/dL (65-115); Osmolality Calculated 283 mOsm/kg (285-295); Sodium 136 mmol/L (136-145)
[2022-04-27 06:13] LABS: Anion Gap 16.4 (5-19); Potassium 3.4 mmol/L (3.5-5.1)
[2022-04-27 08:41] LABS: Hemoglobin 9.4 g/dL (11.7-16.6)
[2022-04-27 09:31] LABS: ABG PCO2 35.3 mmHg (35-45); Base Excess ABG -2.7 mmol/L (-2.0-2.0); Blood Gas Allen Test Pos; Blood Gas Sample Site Radial, left; Blood Gas Sample Type Arterial; Carboxyhemoglobin 0.7 %THgb (0.4-20.1); HCO3 ABG 21.8 mmol/L (22-26); Ionized Calcium Level - ABG 0.9 mmol/L (1.1-1.4); Methemoglobin 0.9 % (0.4-1.5); Oxygen Saturation ABG 98.5; Potassium Level - ABG 5.8 mmol/L (3.5-5.0); Total Hemoglobin 7.5 g/dL (14-18)
[2022-04-27] MEDS: sodium chloride 0.9% 1,000 ML 30 ML IV (10:09)
--- NOTE | 2022-04-27 10:11 | PC.NURSE ---
Morning meds on hold for EGD procedure.
--- NOTE | 2022-04-27 10:16 | ANES.PREANE2 ---
Pre-Anesthetic Assessment Height/Weight: Height 1.7 m Weight 59.965 kg Temp Pulse Resp BP Pulse Ox 97.3 F L 101 H 18 101/59 100 04/27/22 10:02 04/27/22 10:02 04/27/22 10:02 04/27/22 10:02 04/27/22 10:02 Preop Diagnosis: anemia Operation Date: 04/27/22 11:00 Proposed Procedures p EGD(Not Applicable) - Brian Stone MD Familial anesthetic complications: None Was Beta Tiny taken within 24 hours: N/A Was Clonidine taken within 24 hours: N/A Last intake: Intake Last Liquid Date 04/27/22 Last Liquid Time 02:30 Last Solid Date 04/26/22 Last Solid Time 12:00 Social No alcohol and No tobacco Exam alert, oriented x 3, clear to auscultation bilaterally and regular rate & rhythm Airway Submandibular: within normal limits Cervical ROM: within normal limits Mallampati: Class I Dentition: full Comments: Comments: very poor dentition History/ROS No significant complaints Pulmonary None reported CV/HEM Anemia METS > 4 K 3.4 MARCIE d/t dehydration Obstructive uropathy Hepatic None reported GI Crohn's Metabolic None reported Musc/skel None reported Neuropsych Anxiety Anesthetic Plan ASA status: 3 Anesthesia: Anesthesia Evaluation, General and MAC Other: I discussed with the patient risks, goals, and benefits of MAC and general anesthesia. We discussed spectrum of MAC anesthesia including conversion to general as well as possibility of recall of intraoperative stimuli including discomfort/pain. Patient agrees to proceed with MAC. Risk of > 500 ml blood loss (7ml/kg in children): No Medications/Allergies Home Medications Medication Instructions Recorded Confirmed Last Taken Type ascorbic acid (vitamin C) 500 mg 500 mg PO DAILY cap 05/04/21 04/23/22 Unknown History capsule calcium carbonate 500 mg calcium 500 mg PO DAILY 05/04/21 04/23/22 Unknown History (1,250 mg) tablet (Calcium 500) cyanocobalamin (vitamin B-12) 1,000 mcg PO DAILY 05/04/21 04/23/22 Unknown History 1,000 mcg/mL oral drops folic acid 1 mg tablet 1 mg PO DAILY 05/04/21 04/23/22 Unknown History multivitamin (Daily Multi-Vitamin) 1 tab PO DAILY 05/04/21 04/23/22 Unknown History ferrous fumarate 324 mg (106 mg 324 mg PO BID tab 07/04/21 04/23/22 Unknown History iron) tablet mecobalamin (vitamin B12) 1,000 1,000 mcg SUBLINGUAL DAILY 07/04/21 04/23/22 Unknown History mcg disintegrating tablet,sublingual clindamycin phosphate 1 % lotion 1 applic TOPICAL QAM #60 ml 11/10/21 04/23/22 Unknown Rx fluoxetine 20 mg capsule (Prozac) 20 mg PO DAILY #60 cap 04/27/22 Unknown Rx Allergies Allergy/AdvReac Type Severity Reaction Status Date / Time ciprofloxacin [From Cipro] Allergy perpheral Verified 12/12/21 08:19 neuropathy levofloxacin [From Levaquin] Allergy unk Verified 12/12/21 08:19 penicillin G Allergy hives Verified 12/12/21 08:19 sulfamethoxazole Allergy Hives Verified 12/12/21 08:19 [From Bactrim] trimethoprim [From Bactrim] Allergy Hives Verified 12/12/21 08:19 encort Allergy suicidal Uncoded 12/12/21 08:19 thoughts Current Medications Generic Name Dose Route Start Last Admin Trade Name Freq PRN Reason Stop Dose Admin Alprazolam 0.5 mg 04/25/22 11:51 04/26/22 22:48 Alprazolam 0.5 Mg Tablet PO 0.5 mg TID PRN Administration ANXIETY Enoxaparin Sodium 30 mg 04/23/22 21:00 04/24/22 20:59 Enoxaparin 30 Mg/0.3 Ml Syringe SUBCUT Not Given Q24H BETSY Fluoxetine HCl 20 mg 04/26/22 09:00 04/26/22 08:54 Fluoxetine 20 Mg Capsule PO 20 mg DAILY BETSY Administration Sodium Chloride 1,000 mls @ 100 mls/hr 04/25/22 12:00 04/27/22 05:50 Sodium Chloride 0.9% IV 100 mls/hr .Q10H BETSY Administration Sodium Chloride 1,000 mls @ 30 mls/hr 04/27/22 10:15 04/27/22 10:09 Sodium Chloride 0.9% IV 04/28/22 10:14 30 mls/hr .Q24H BETSY Administration Magnesium Oxide 400 mg 04/24/22 09:00 04/26/22 08:54 Magnesium Oxide 400 Mg Tablet PO 400 mg DAILY BETSY Administration Pantoprazole Sodium 40 mg 04/26/22 12:05 04/26/22 21:34 Pantoprazole 40 Mg Sdv IVP 40 mg BID@0900,2100 BETSY Administration Polysaccharide Iron Complex 150 mg 04/26/22 18:00 04/26/22 17:50 Iron Polysaccharide Complex 150 Mg Capsule PO 150 mg BIDWM BETSY Administration PFSH Anesthesia Medical History Acute renal failure History of Crohn's disease Surgical History H/O ileostomy History of bowel resection Family History Mother Cancer Other Diabetes Hypertension Social History Smoking and tobacco status: never smoked History of recent travel: No Data Anesthesia : 04/27/22 04:44 04/27/22 04:44 Short CBC 04/26/22 04/26/22 04/27/22 Range/Units 05:51 07:16 04:44 WBC Cancelled 6.4 6.3 Hgb Cancelled 6.8 L 9.4 L D Hct Cancelled 21.6 L 28.4 L D MCV Cancelled 80.0 80.0 Plt Count Cancelled 316 274 Neut % (Auto) Cancelled 67.9 67.2 Neut # (Auto) Cancelled 4.36 4.26 BMP 04/26/22 04/27/22 05:51 04:44 Sodium 132 L 136 Potassium 3.3 L 3.4 L Chloride 96 L 97 L Carbon Dioxide 23 26 BUN 28 H 19 Creatinine 3.0 H 2.3 H Glucose 72 67 Calcium 8.2 L 8.2 L Cardiac Enzymes 04/26/22 Range/Units 05:51 Creatine Kinase 51 (39-308) U/L Liver Function 04/26/22 Range/Units 05:51 Total Bilirubin 0.2 (0.15-1.2) mg/dL AST 13 (0-40) U/L ALT 9 (0-41) U/L Alkaline Phosphatase 84 (40-130) IU/L Albumin 2.5 L (3.5-5.2) g/dL Blood Bank 04/26/22 12:28 Blood Type A Positive Rho(D) Type Positive Antibody Screen Negative ABG 04/23/22 01:22 Specimen Type Arterial Sample Site Radial, left ABG pH 7.40 ABG pCO2 35.3 ABG pO2 105.0 H ABG HCO3 21.8 L ABG O2 Saturation 98.5 ABG Base Excess -2.7 L A-a O2 Gradient Not Reportable O2 Delivery Device None Cardiac Studies: No Data to Display
--- NOTE | 2022-04-27 11:20 | P.PCN_ITS ---
Procedure Note: Date of procedure: 04/27/22 Pre-procedure diagnosis: Microcytic anemia Post-procedure diagnosis: other Procedure: Duodenitis, and gastric ulcers in the antrum Estimated blood loss (mL): 5 Complications: None Pathology: other (Biopsies of the duodenum and antrum.) Other Information: Multiple chronic linear healing ulcers were noted in the antrum of the stomach. No active bleeding was noted. From a gastrointestinal standpoint, can be discharged when appropriate. Please review EGD note for further details He should remain on a proton pump inhibitor, as well as an iron supplement with vitamin C separate from meals if tolerated Coding Level of Care Code Acute Clinical Project Manager for Juan Jose Canas
--- NOTE | 2022-04-27 11:34 | P.DS_ITS ---
Discharge Providers Date of Admission: 04/23/22 03:25 Date of Discharge: April 27, 2022 Attending Provider at Admission: Ethan Krause MD Attending Provider at Discharge: Odalys Cartagena MD Primary Care Provider: Karen Christianson MD Diagnoses at Discharge Discharge Diagnosis (1) Microcytic anemia: Status: Acute (2) Crohn disease: Status: Acute (3) Acute renal failure: Status: Acute Reason for Visit Reason for Visit: dehydration, n/v Hospital Course Hospital Course 41-year-old male with history of Crohn's disease status post surgical intervention with ileostomy, presented to hospital with chief complaint of severe dehydration. He was diagnosed with MARCIE, he had hypovolemic hyponatremia related to poor p.o. intake and increased output from the bag. Electrolyte imbalance repleted, he required aggressive IV fluid hydration, nephro was consulted as well who agreed with IV fluid hydration. His creatinine improved, I noticed that his hemoglobin dropped to 6.8, requested FOBT which was positive, Dr. Stone did endoscopy. During his hospitalization he required 2 units PRBC. I also gave him 1 bag of iron. Iron extremely low. He does take iron supplements at home. Ferritin is high related to anemia of chronic disease but is anemia is related to GI blood loss and iron deficiency anemia. Patient does endorse signs of depression, he takes Prozac, required Ativan for panic attacks. We will give him referral for [facility]. Added cholestyramine for as needed use in case he gets increased output from his ostomy. Patient has poor dentition, dental caries, counseled him to see dentist Physical Exam Narrative: Young male Nonfocal neuro exam Liquid fecal content in the bag Abdomen soft S1, S2 Complexion is better Dental caries Discharge Data Studies Completed and Pending Completed Studies During Hospitalization Category Date Time Status CT abdomen pelvis wo con [id number] Urgent Cat Scan 04/23/22 00:53 Completed Pending at discharge Category Date Time Status ARNIE Profile Rheumatology Stat Lab 04/23/22 05:34 Results Gastricult Occult BLD Stat Lab 04/25/22 07:31 Ordered Radiology Impressions Abdomen/Pelvis CT 04/23/22 00:53 IMPRESSION: 1. One or more nonobstructing right renal calyceal stones. 2. Left ileostomy. 3. Probable previous takedown of right-sided ostomy. 4. Previous resection of the rectum and possibly the entire colon. 5. Right bowel anastomosis consistent with previous partial bowel resection. Laboratory Results WBC 6.3 10^3/uL (4.0-10.0) 04/27/22 04:44 Corrected WBC Cancelled 04/26/22 05:51 RBC 3.55 10^6/uL (4.1-5.3) L 04/27/22 04:44 Hgb 9.4 g/dL (11.7-16.6) L D 04/27/22 04:44 Hct 28.4 % (42.0-52.0) L D 04/27/22 04:44 MCV 80.0 fl (80-94) 04/27/22 04:44 MCH 26.5 pg (28.0-34.0) L 04/27/22 04:44 MCHC 33.1 g/dL (30.0-36.0) D 04/27/22 04:44 RDW 16.7 % (12.1-15.1) H 04/27/22 04:44 Plt Count 274 10^3/cmm (130-400) 04/27/22 04:44 MPV 8.0 fL (7.4-10.4) 04/27/22 04:44 Gran % Cancelled 04/26/22 05:51 Neut % (Auto) 67.2 % 04/27/22 04:44 Lymph % (Auto) 11.0 % 04/27/22 04:44 [place] % (Auto) 15.8 % 04/27/22 04:44 Eos % (Auto) 3.8 % 04/27/22 04:44 Baso % (Auto) 0.6 % 04/27/22 04:44 Neut # (Auto) 4.26 10^3/uL (1.8-7.7) 04/27/22 04:44 Lymph # (Auto) 0.7 10^3/uL (0.8-4.8) L 04/27/22 04:44 [place] # (Auto) 1.0 10^3/uL (0.2-0.9) H 04/27/22 04:44 Eos # (Auto) 0.2 10^3/uL (0.0-0.8) 04/27/22 04:44 Baso # (Auto) 0.0 10^3/uL (0.0-0.1) 04/27/22 04:44 Absolute Gran (auto) Cancelled 04/26/22 05:51 Nucleated RBC % (auto) 0 % 04/27/22 04:44 Nucleated RBCs # 0.0 /100WBC 04/27/22 04:44 ESR 49 mm/hr (0-10) H 04/23/22 05:34 Specimen Type Arterial 04/23/22 01:22 Sample Site Radial, left 04/23/22 01:22 ABG pH 7.40 (7.35-7.45) 04/23/22 01:22 ABG pCO2 35.3 mmHg (35-45) 04/23/22 01: ABG pO2 105.0 mmHg (80.0-100.0) H 04/23/22 01:22 ABG HCO3 21.8 mmol/L (22-26) L 04/23/22 01:22 ABG O2 Saturation 98.5 04/23/22 01:22 ABG Base Excess -2.7 mmol/L (-2.0-2.0) L 04/23/22 01:22 Abimael Test Pos 04/23/22 01:22 A-a O2 Gradient Not Reportable 04/23/22 01:22 Hematocrit 23.0 % (42-52) L 04/23/22 01:22 Hgb O2 Saturation 97.0 % (95-100) 04/23/22 01:22 Carboxyhemoglobin 0.7 %THgb (0.4-20.1) 04/23/22 01:22 Methemoglobin 0.9 % (0.4-1.5) 04/23/22 01:22 Total Hemoglobin 7.5 g/dL (14-18) L 04/23/22 01:22 Sodium 123.0 mmol/L (131-143) L 04/23/22 01:22 Potassium 5.8 mmol/L (3.5-5.0) H 04/23/22 01:22 Glucose 52.0 mg/dL (70-115) L 04/23/22 01:22 Ionized Calcium 0.9 mmol/L (1.1-1.4) L 04/23/22 01:22 O2 Delivery Device None 04/23/22 01:22 Computer Repairer ID Hensa 04/23/22 01:22 Sodium 136 mmol/L (136-145) 04/27/22 04:44 Potassium 3.4 mmol/L (3.5-5.1) L 04/27/22 04:44 Chloride 97 mmol/L (98-107) L 04/27/22 04:44 Carbon Dioxide 26 mmol/L (22-29) 04/27/22 04:44 Anion Gap 16.4 (5-19) 04/27/22 04:44 BUN 19 mg/dL (6-20) 04/27/22 04:44 Creatinine 2.3 mg/dL (0.7-1.2) H 04/27/22 04:44 GFR Calculation 31.8 mL/min (90-130) L 04/27/22 04:44 Glucose 67 mg/dL (65-115) 04/27/22 04:44 POC Glucose 94 mg/dL (70-110) 04/23/22 06:28 Estimat Average Glucose 189 04/23/22 05:34 Hemoglobin A1c 8.2 % (4.0-6.0) H 04/23/22 05:34 Calculated Osmolality 283 mOsm/kg (285-295) L 04/27/22 04:44 Lactic Acid 0.9 mmol/L (0.5-2.2) 04/23/22 05:34 Lactate 0.8 mmol/L (0.5-2.2) 04/26/22 05:51 Calcium 8.2 mg/dL (8.5-10.5) L 04/27/22 04:44 Phosphorus 2.9 mg/dL (2.5-4.5) 04/26/22 05:51 Magnesium 1.7 mg/dL (1.7-2.3) 04/26/22 05:51 Iron 32 ug/dL (59-158) L 04/25/22 04:30 Ferritin 524 ng/mL (30-400) H 04/25/22 04:30 Total Bilirubin 0.2 mg/dL (0.15-1.2) 04/26/22 05:51 AST 13 U/L (0-40) 04/26/22 05:51 ALT 9 U/L (0-41) 04/26/22 05:51 Alkaline Phosphatase 84 IU/L (40-130) 04/26/22 05:51 Creatine Kinase 51 U/L (39-308) 04/26/22 05:51 Troponin T Baseline 33 ng/L (0-15) H 04/22/22 21:48 Troponin T 120 Minute 25.65 ng/L (0-15) H 04/23/22 00:38 Delta Troponin T -7.35 ABS# (0-10) L 04/23/22 00:38 Troponin T Hi Sens 6Hr 35.51 ng/L (0-15) H 04/23/22 05:34 Troponin T Hi Sens 6Hr Delta 2.51 ng/L (0-12) 04/23/22 05:34 C-Reactive Protein 58.1 mg/L (0.0-4.9) H 04/23/22 05:34 Total Protein 6.5 g/dL (6.6-8.7) L 04/26/22 05:51 Albumin 2.5 g/dL (3.5-5.2) L 04/26/22 05:51 Globulin 4.0 g/dL (1.3-4.6) 04/26/22 05:51 Lipase 151 U/L (13-60) H 04/22/22 21:48 TSH 0.55 uIU/mL (0.27-4.20) 04/23/22 05:34 Random Cortisol 8.30 ug/dL (2.47-19.5) 04/23/22 07:45 Urine Color Yellow (Yellow) 04/23/22 02:40 Urine Appearance Clear (CLEAR) 04/23/22 02:40 Urine pH 7 (5-7) 04/23/22 02:40 Ur Specific [place] 1.010 (1.005-1.030) 04/23/22 02:40 Urine Protein 1+ (Negative) H 04/23/22 02:40 Urine Glucose (UA) Norm (Normal) 04/23/22 02:40 Urine Ketones Negative (Negative) 04/23/22 02:40 Urine Blood 3+ (Negative) H 04/23/22 02:40 Urine Nitrate Negative (Negative) 04/23/22 02:40 Urine Bilirubin Neg (Negative) 04/23/22 02:40 Urine Urobilinogen Norm mg/dL (Negative) 04/23/22 02:40 Ur Leukocyte Esterase Negative (Negative) 04/23/22 02:40 Urine RBC 0-4 /hpf (0-2) H 04/23/22 02:40 Urine WBC 0-4 /hpf (0-5) H 04/23/22 02:40 Ur Eosinophil Smear 0 (0-0) 04/23/22 02:40 Ur Squamous Epith Cells 0-4 /hpf (0-5) H 04/23/22 02:40 Amorphous Sediment 1+ /hpf 04/23/22 02:40 Urine Bacteria Trace /hpf (NONE) 04/23/22 02:40 Hyaline Casts 0-4 /lpf H 04/23/22 02:40 Urine Mucus Trace /hpf 04/23/22 02:40 Urine Eosinophils No eosinophils seen 04/23/22 02:40 Urine Osmolality 347 mOsm/kg (50-1200) 04/23/22 02:40 Ur Random Creatinine 92 mg/dL (20-320) 04/23/22 02:40 Ur Random Albumin 14 % 04/23/22 02:40 U Random Total Protein 115 mg/dL (5-25) H 04/23/22 02:40 Ur Random Sodium 13 mmol/L 04/23/22 02:40 Ur Random Potassium 84 mmol/L 04/23/22 02:40 Ur Random Chloride 14 mmol/L 04/23/22 02:40 Urine Creatinine 94 mg/dL (39-259) 04/23/22 02:40 Protein/Creatinin Ratio 1250 mg/g creat (22-128) H 04/23/22 02:40 Protein/Creat Ratio 24h 1.250 (0.022-0.128) H 04/23/22 02:40 U Random r-1-Urdhdqxu % 14 % 04/23/22 02:40 U Random e-2-Tfwakwxm % 29 % 04/23/22 02:40 U Random Beta Globulin 32 % 04/23/22 02:40 U Random Gamma Glob 11 % 04/23/22 02:40 U Abnormal Prot Band 1 Not Reportable 04/23/22 02:40 U Abnormal Prot Band 2 Not Reportable 04/23/22 02:40 U Abnormal Prot Band 3 Not Reportable 04/23/22 02:40 Urine PEP Interpret See note 04/23/22 02:40 Serum Ketones Negative (Negative) 04/23/22 05:34 Rheumatoid Factor 11.0 IU/mL (0-14) 04/23/22 05:34 ARNIE IFA Animal Tis Res Negative (NEGATIVE) 04/23/22 05:34 TOSHIA-1 Antibody <1.0 neg AI (<1.0 NEG) 04/23/22 05:34 SS-A Antibody <1.0 neg AI (<1.0 NEG) 04/23/22 05:34 SS-B Antibody <1.0 neg AI (<1.0 NEG) 04/23/22 05:34 Sm (Dietz) Antibody <1.0 neg AI (<1.0 NEG) 04/23/22 05:34 MAGNETIC RESONANCE TECHNOLOGIST Antibody <1.0 neg AI (<1.0 NEG) 04/23/22 05:34 Scl-70 Antibody <1.0 neg AI (<1.0 NEG) 04/23/22 05:34 Centromere B Antibody <1.0 neg AI (<1.0 NEG) 04/23/22 05:34 Thyroid Peroxidase Ab 1 IU/mL (<9) 04/23/22 05:34 Complement C3c 91 mg/dL (82-185) 04/23/22 05:34 Complement C4c 36 mg/dL (15-53) 04/23/22 05:34 CH50 Classical Pathway >60 U/mL (31-60) H 04/23/22 05:34 Blood Type A Positive 04/26/22 12:28 Rho(D) Type Positive 04/26/22 12:28 Antibody Screen Negative 04/26/22 12:28 Crossmatch See Detail 04/26/22 12:28 Vitals Last Vital Signs Temp 97.3 F L 04/27/22 10:02 Pulse 101 H 04/27/22 10:02 Resp 18 04/27/22 10:02 BP 101/59 04/27/22 10:02 Pulse Ox 100 04/27/22 10:02 Discharge Plan Discharge Patient Disposition: Home Condition: Stable Prescriptions: New omeprazole 20 mg capsule,delayed release(DR/EC) 20 mg PO DAILY 56 Days 0RF cholestyramine-aspartame 4 gram powder 4 g PO BID PRN (Reason: diarrhea) Qty: 239.4 0RF Rx Instructions: administer w/meal; avoid other meds within 1hr before or 4-6hr after dose Continued folic acid 1 mg tablet 1 mg PO DAILY 0RF cyanocobalamin (vitamin B-12) 1,000 mcg/mL drops 1,000 mcg PO DAILY 0RF calcium carbonate [Calcium 500] 500 mg calcium (1,250 mg) tablet 500 mg PO DAILY 0RF ascorbic acid (vitamin C) 500 mg capsule 500 mg PO DAILY 0RF multivitamin [Daily Multi-Vitamin] Tablet 1 tab PO DAILY 0RF mecobalamin (vitamin B12) 1,000 mcg tablet,disintegrating 1,000 mcg sublingual DAILY 0RF Rx Instructions: place tablet under tongue and allow to dissolve for at least30 secs before swallowing clindamycin phosphate 1 % lotion 1 applic topical QAM Qty: 60 3RF Rx Instructions: Apply thin film to affected areas 1-2 times daily Prozac 20 mg capsule 20 mg PO DAILY Qty: 60 0RF ferrous fumarate 324 mg (106 mg iron) tablet 324 mg PO BID Qty: 60 0RF Referrals: Cordell Fitzpatrick Jr, MD [Staff Physician] - 4-7 days [facility], [Staff Physician] - 1 week [facility], [Staff Physician] - None (Disregard this appointment) Discharge Diet: Diabetic Discharge Activity: Increase activity as tolerated Patient Instructions: GI Discharge Instructions, Opioid Safety Discharge Attestations Time Spent in Discharge Care*: less than 30 min Quality Metrics Clinical Quality Measures [ No reported AMI, CVA or VTE this stay] Coding Level of Care Code Acute Chg FW DC note Diagnoses Microcytic anemia D50.9 Crohn disease K50.90 Acute renal failure N17.9
[2022-04-27] MEDS: pantoprazole 40 mg SDV IVP ×2 (13:02→20:10)
[2022-04-27] MEDS: magnesium oxide 400 mg tablet PO (13:02)
[2022-04-27] MEDS: iron polysaccharide complex 150 mg Capsule PO ×2 (13:03→17:47)
[2022-04-27] MEDS: fluoxetine 20 mg Capsule PO (13:03)
--- NOTE | 2022-04-27 14:17 | ANE.PACU2 ---
Inpatient post-anesthesia follow up: Airway intact: Yes Vital signs: Temperature 97.8 F Pulse Rate 101 Respiratory Rate 16 Blood Pressure 108/68 Pulse Oximetry 96 Oxygen Delivery Me thod Room Air Oxygen Flow Rate Fraction of Inspir ed Oxygen Hydration adequate: Yes Nausea and vomiting: No Pain level: 1 Mental status: Baseline
[2022-04-27 16:42] LABS: DNA AB (DS) CRITHIDIA,IFA NEGATIVE (NEGATIVE)
--- NOTE | 2022-05-02 18:33 | PM.HP ---
Providers/Chief Complaint Admitting Physician: Ethan Krause MD Primary Care Provider: Karen Christianson MD Chief Complaint: dehydration, n/v History of Present Illness Amilcar Chapin is a 41 year old male who was recently discharged from the hospital for management of prerenal azotemia he was aggressively hydrated with IV fluids, he was noticed to have FOBT positive acute GI bleed for which endoscopy was done by Dr. Stone which showed duodenitis chronic gastric ulcer, he was discharged on cholestyramine, he was asked to follow-up with Dr. Mujica today who sent to the hospital for dehydration hyponatremia and MARCIE. Patient stating that he has not noticed any vomiting, fever, chest pain or shortness of breath however he is still feeling lethargic and fatigued he is noticing high output from his colostomy. His concern is related to adrenal gland as he recently stopped taking steroids. However no cortisol level is normal his goal blood pressure improved with IV fluid hydration in the ER, I requested cosyntropin test Review of Systems Const: Denies: fever(s) Eyes: Denies: change in vision Card: Denies: chest pain Resp: Denies: dyspnea GI: Reports: GI cramping; Denies: abdominal pain : Denies: flank pain Musc: Denies: neck pain Skin/Breast: Reports: rash and lesions Neuro: Denies: headache(s) Psych: Denies: anxiety Endo: Denies: polyuria Abbe/Lymph: Denies: easy bruising All/Imm: Denies: urticaria Medications/Allergies Home Medications Medication Instructions Recorded Confirmed Last Taken Type ascorbic acid (vitamin C) 500 mg 500 mg PO DAILY cap 05/04/21 05/02/22 05/02/22 History capsule calcium carbonate 500 mg calcium 500 mg PO DAILY 05/04/21 05/02/22 05/02/22 History (1,250 mg) tablet (Calcium 500) cyanocobalamin (vitamin B-12) 1,000 mcg PO DAILY 05/04/21 05/02/22 05/02/22 History 1,000 mcg/mL oral drops folic acid 1 mg tablet 1 mg PO DAILY 05/04/21 05/02/22 05/02/22 History multivitamin (Daily Multi-Vitamin) 1 tab PO DAILY 05/04/21 05/02/22 05/02/22 History cholestyramine-aspartame 4 gram 4 g PO BID PRN #239.4 g 04/27/22 05/02/22 Unknown Rx oral powder ferrous fumarate 324 mg (106 mg 324 mg PO BID #60 tab 04/27/22 05/02/22 05/02/22 Rx iron) tablet fluoxetine 20 mg capsule (Prozac) 20 mg PO DAILY #60 cap 04/27/22 05/02/22 05/02/22 Rx omeprazole 20 mg capsule,delayed 20 mg PO DAILY 56 Days cap 04/27/22 05/02/22 Unknown Rx release Allergies Allergy/AdvReac Type Severity Reaction Status Date / Time ciprofloxacin [From Cipro] Allergy perpheral Verified 12/12/21 08:19 neuropathy levofloxacin [From Levaquin] Allergy unk Verified 12/12/21 08:19 penicillin G Allergy hives Verified 12/12/21 08:19 sulfamethoxazole Allergy Hives Verified 12/12/21 08:19 [From Bactrim] trimethoprim [From Bactrim] Allergy Hives Verified 12/12/21 08:19 encort Allergy suicidal Uncoded 12/12/21 08:19 thoughts PFSH Acute PFSH: Medical History (Updated 05/02/22 @ 18:46 by Odalys Cartagena MD) Acute renal failure History of Crohn's disease Hyperkalemia Hyponatremia Metabolic acidosis Type 2 diabetes mellitus Surgical History H/O ileostomy History of bowel resection Family History Mother Cancer Other Diabetes Hypertension Social History Smoking and tobacco status: never smoked History of recent travel: No Vitals/I&O/Wt Last Vital Signs Temp 99.1 F 04/27/22 22:45 Pulse 96 04/27/22 22:45 Resp 21 H 04/27/22 22:45 BP 97/62 04/27/22 22:45 Pulse Ox 97 04/27/22 22:45 Physical Exam Narrative: Young male Clinically looks dehydrated Muscle fasciculation Muscle cramps Nonfocal neuro exam Awake and alert Dental caries S1, S2 Blood pressure improved after IV fluid hydration Awake and alert Saturating well on room air Data : 04/27/22 04:44 04/27/22 04:44 A&P Assessment and plan (1) MARCIE (acute kidney injury): Status: Acute (2) Hypokalemia: Status: Acute (3) Dehydration: Status: Acute (4) Hypovolemia: Status: Acute (5) Duodenitis: Status: Acute Plan Dehydration related to prerenal azotemia Increased output from colostomy Cosyntropin test Recent THS renal cortisol were normal No active vomiting Will add loperamide and cholestyramine Low blood pressure improved with IV fluids Hyponatremia hypovolemia anticipate improvement with IV fluid hydration Duodenitis with active upper GI bleed status post endoscopy on previous visit globin is stable I rediscussed goals of care with the patient he is adamant that he is DNR/DNI, I advised him to reconsider and let me know in the morning Recheck phosphorus and magnesium, at risk of refeeding syndrome Attestations Medical Necessity Statement*: Anticipated discharge within 48 hours Time Spent in Patient Care: 40 Coding Level of Care Code Acute Fertilizer Loader for [facility] Fwd Diagnoses MARCIE (acute kidney injury) N17.9 Hypokalemia E87.6 Dehydration E86.0 Hypovolemia E86.1 Duodenitis K29.80
== END 2022-04-27 21:15 | disposition home or self-care (01) | DRG 682 ==
LOC: ER 04-23 02:43 → ICU 04-23 02:45 → MEDSURG 04-24 21:57
PROVIDERS: Family Medicine; Physician Assistant; Admitting Provider Family Medicine; Emergency Provider Emergency Medicine; PCP Family Medicine; Visit Provider Internal Medicine
PROC: 0DJ08ZZ Inspection of Upper Intestinal Tract, Via Natural or Artificial Opening Endoscopic (ICD-10-PCS; CPT 43235; principal; 2022-04-27 11:00)
DX: N17.9 Acute kidney failure, unspecified (principal); K29.81 Duodenitis with bleeding; K29.51 Unspecified chronic gastritis with bleeding; K50.90 Crohn's disease, unspecified, without complications; L88 Pyoderma gangrenosum; E87.1 Hypo-osmolality and hyponatremia; E87.2 Acidosis; E86.0 Dehydration; Z90.49 Acquired absence of other specified parts of digestive tract; Z93.2 Ileostomy status; E11.9 Type 2 diabetes mellitus without complications; Z79.52 Long term (current) use of systemic steroids; E87.5 Hyperkalemia; N13.9 Obstructive and reflux uropathy, unspecified; L89.322 Pressure ulcer of left buttock, stage 2; D63.8 Anemia in other chronic diseases classified elsewhere; F32.A Depression, unspecified; D50.0 Iron deficiency anemia secondary to blood loss (chronic); F41.0 Panic disorder [episodic paroxysmal anxiety]
CPT/HCPCS: 12345; 36415; 36416; 36430; 36600; 43239; 74176; 80048; 80051; 80053; 81001; 82009; 82274; 82330; 82436; 82533; 82550; 82570; 82728; 82805; 82962; 83036; 83540; 83605; 83690; 83735; 83935; 84100; 84133; 84156; 84166; 84295; 84300; 84443; 84484; 85014; 85018; 85025; 85651; 85999; 86140; 86160; 86162; 86235; 86255; 86376; 86431; 86850; 86900; 86920; 87086; 88305; 88342; 93005; 94640; 94664; 96361; 96365; 96375; 99285; C9113; J0610; J1720; J1756; J1815; J2405; J2704; J3475; J7030; J7040; J7614; P9016; P9041; Q3014

== ENCOUNTER 2022-05-02 16:28 | Observation (INO) | payer BC, SELFPAY ==
--- NOTE | 2022-05-02 16:35 | ECG_ITS ---
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 Measurements Intervals [place] Rate: 126 P: 79 CA: 136 QRS: 30 QRSD: 69 T: 59 QT: 285 QTc: 413 Interpretive Statements SINUS TACHYCARDIA Compared to ECG 04/23/2022 06:12:28 No significant changes Electronically Signed On 05-02-2022 18:29:53 CDT by Emerson Odom M.D. [email or web address]
[2022-05-02 16:40] VITALS: BMI 19.5
[2022-05-02 16:43] VITALS: BP 92/59; PULSE 144; RESP 18; TEMP 36.7; O2SAT 91
[2022-05-02] MEDS: sodium chloride 0.9% 1,000 ML 999 ML IV ×2 (17:00→17:52)
[2022-05-02 17:09] LABS: Basophils # 0.1 10^3/uL (0.0-0.1); Basophils % 0.7 %; Eosinophils # 0.1 10^3/uL (0.0-0.8); Eosinophils % 0.8 %; Hematocrit 33.9 % (42.0-52.0); Hemoglobin 11.7 g/dL (11.7-16.6); Lymphocytes # 1.2 10^3/uL (0.8-4.8); Lymphocytes % 10.1 %; Mean Corpuscular HGB Conc 34.5 g/dL (30.0-36.0); Mean Corpuscular Hemoglobin 27.4 pg (28.0-34.0); Mean Corpuscular Volume 79.4 fl (80-94); Mean Platelet Volume 7.8 fL (7.4-10.4); Monocytes # 1.8 10^3/uL (0.2-0.9); Monocytes % 15.3 %; Neutrophils # 8.51 10^3/uL (1.8-7.7); Neutrophils % 71.7 %; Nucleated Red Blood Cells % 0 %; Platelet Count 632 10^3/cmm (130-400); Red Blood Count 4.27 10^6/uL (4.1-5.3); White Blood Count 11.9 10^3/uL (4.0-10.0)
--- NOTE | 2022-05-02 17:15 | XRR_ITS ---
PROCEDURE INFORMATION: Exam: XR Chest Exam date and time: 05/02/2022 5:21 PM Age: 41 years old Clinical indication: Shortness of breath; Additional info: Dyspnea/cough TECHNIQUE: Imaging protocol: XR of the chest. Views: 1 view. COMPARISON: CT abdomen pelvis con [id number] 04/23/2022 2:06 AM FINDINGS: Lungs: Unremarkable. No consolidation. Pleural spaces: Unremarkable. No pleural effusion. No pneumothorax. Heart/Mediastinum: Unremarkable. No cardiomegaly. Bones/joints: Unremarkable. XR/XR chest 1V portable [id number] IMPRESSION: No acute findings.
--- NOTE | 2022-05-02 17:16 | ED_ITS ---
HPI - Male Genitourinary General: Chief complaint: Urogenital-Male Stated complaint: Kidney issues dr stover sent Time Seen by Provider: 05/02/22 16:35 Source: patient Mode of arrival: ambulatory Limitations: no limitations History of Present Illness: 41-year-old male presents emergency room from [facility] primary care doctor's office. Patient him to the PCP for a follow-up after a flareup of his ulcerative colitis. He was found to be in acute kidney injury at his doctor's office. When you presented to the emergency room previously he had severe acute acute kidney injury which was treated ago patient side he was significantly improved on discharge today is reporting Creatinine near 7 at his doctor's office. He generally feels very fatigued lightheaded and dizzy with decreased urinary output for the last week. Denies chest pain. He has not had any hematemesis coffee-ground emesis he has a colostomy in the left lower quadrant has not had any bloody output from 9. Onset (ago): week(s) Duration: constant Severity: moderate Relieving factors: none Exacerbating factors: none Associated symptoms: Reports nausea; Deny dysuria, fevers/chills, hematuria, rash, urinary incontinence, urinary retention, mass or vomiting Review of Systems Const: Denies: fever(s), chills, body aches, change in appetite, fatigue or malaise ENMT: Denies: throat pain, ear or mastoid pain, nasal discharge or nasal congestion Card: Denies: chest pain, palpitations, edema, dyspnea on exertion or orthopnea Resp: Denies: dyspnea, productive cough or non-productive cough GI: Reports: nausea; Denies: abdominal pain or vomiting : Denies: flank pain, difficulty urinating, dysuria, urinary frequency, urinary incontinence or hematuria Skin/Breast: Denies: rash or pruritus PFSH ED PFSH: Medical History Acute renal failure History of Crohn's disease Hyperkalemia Hyponatremia Metabolic acidosis Type 2 diabetes mellitus Surgical History H/O ileostomy History of bowel resection Family History Mother Cancer Other Diabetes Hypertension Social History Smoking and tobacco status: never smoked History of recent travel: No Physical Exam Const: GENERAL APPEARANCE: cooperative and comfortable ORIENTATION/CONSCIO USNESS: Yes awake, Yes oriented to person, Yes oriented to place and Yes oriented to time HENMT: COMMON NORMALS: normocephalic, atraumatic and hearing grossly normal bilaterally HEAD & SCALP: normocephalic and atraumatic Resp: COMMON NORMALS: normal respiratory effort, No retractions, No use of accessory muscles and clear to auscultation bilaterally AUSCULTATION: clear to auscultation bilaterally Cardio: COMMON NORMALS: regular rhythm and No murmurs present (Cardio) RATE: tachycardic RHYTHM: regular rhythm GI: COMMON NORMALS: Soft to palpation and No hepatosplenomegaly present AUSCULTATION: Yes normoactive bowel sounds PALPATION: Yes Soft to palpation, No Tenderness to palpation present (GI), No Guarding due to palpation present (GI) and Yes No hepatosplenomegaly present Extremity: COMMON NORMALS: normal to inspection, capillary refill normal, no clubbing, cyanosis or edema, no calf tenderness and no pedal edema Neuro: SENSORIUM/ORIENTATION: Yes oriented to person, Yes oriented to place and Yes oriented to time Skin: COMMON NORMALS: no rashes or lesions noted GENERAL SKIN EXAM: no rashes or lesions noted Course Vital Signs: Vital signs: Vital Signs Temperature 98.6 F 05/04/22 12:00 Pulse Rate 98 05/04/22 12:00 Respiratory Rate 16 05/04/22 12:00 Blood Pressure 96/58 05/04/22 12:00 Pulse Oximetry 99 05/04/22 12:00 [facility] - Male Medical Decision Making Acute kidney injury will admit with hypokalemia and hypovolemia discussed with hospitalist orders written Lab Data : 05/04/22 09:55 05/04/22 06:15 Radiology Impressions Chest X-Ray 05/02/22 17:15 IMPRESSION: No acute findings. Laboratory Results WBC 11.9 10^3/uL (4.0-10.0) H 05/02/22 16:57 RBC 4.27 10^6/uL (4.1-5.3) 05/02/22 16:57 Hgb 11.7 g/dL (11.7-16.6) 05/02/22 16:57 Hct 33.9 % (42.0-52.0) L 05/02/22 16:57 MCV 79.4 fl (80-94) L 05/02/22 16:57 MCH 27.4 pg (28.0-34.0) L 05/02/22 16:57 MCHC 34.5 g/dL (30.0-36.0) 05/02/22 16:57 RDW 17.0 % (12.1-15.1) H 05/02/22 16:57 Plt Count 632 10^3/cmm (130-400) H 05/02/22 16:57 MPV 7.8 fL (7.4-10.4) 05/02/22 16:57 Neut % (Auto) 71.7 % 05/02/22 16:57 Lymph % (Auto) 10.1 % 05/02/22 16:57 [place] % (Auto) 15.3 % 05/02/22 16:57 Eos % (Auto) 0.8 % 05/02/22 16:57 Baso % (Auto) 0.7 % 05/02/22 16:57 Neut # (Auto) 8.51 10^3/uL (1.8-7.7) H 05/02/22 16:57 Lymph # (Auto) 1.2 10^3/uL (0.8-4.8) 05/02/22 16:57 [place] # (Auto) 1.8 10^3/uL (0.2-0.9) H 05/02/22 16:57 Eos # (Auto) 0.1 10^3/uL (0.0-0.8) 05/02/22 16:57 Baso # (Auto) 0.1 10^3/uL (0.0-0.1) 05/02/22 16:57 Nucleated RBC % (auto) 0 % 05/02/22 16:57 Nucleated RBCs # 0.0 /100WBC 05/02/22 16:57 Sodium 128 mmol/L (136-145) L 05/02/22 16:57 Potassium 3.9 mmol/L (3.5-5.1) 05/02/22 16:57 Chloride 84 mmol/L (98-107) L 05/02/22 16:57 Carbon Dioxide 20 mmol/L (22-29) L 05/02/22 16:57 Anion Gap 27.9 (5-19) H 05/02/22 16:57 BUN 68 mg/dL (6-20) H 05/02/22 16:57 Creatinine 5.7 mg/dL (0.7-1.2) H* 05/02/22 16:57 GFR Calculation 11.2 mL/min (90-130) L 05/02/22 16:57 Glucose 228 mg/dL (65-115) H 05/02/22 16:57 Calculated Osmolality 293 mOsm/kg (285-295) 05/02/22 16:57 Calcium 9.5 mg/dL (8.5-10.5) 05/02/22 16:57 Total Bilirubin 0.2 mg/dL (0.15-1.2) 05/02/22 16:57 AST 9 U/L (0-40) 05/02/22 16:57 ALT 8 U/L (0-41) 05/02/22 16:57 Alkaline Phosphatase 112 IU/L (40-130) 05/02/22 16:57 Creatine Kinase 16 U/L (39-308) L 05/02/22 16:57 Total Protein 8.7 g/dL (6.6-8.7) 05/02/22 16:57 Albumin 3.9 g/dL (3.5-5.2) 05/02/22 16:57 Globulin 4.8 g/dL (1.3-4.6) H 05/02/22 16:57 Random Cortisol 17.29 ug/dL (2.47-19.5) 05/02/22 16:57 Discharge Plan Discharge Patient Disposition: Admitted As Inpatient Admit Provider: Odalys Cartagena Clinical Impression: MARCIE (acute kidney injury), Hypokalemia, Hypovolemia, Type 2 diabetes mellitus Condition: Stable Discharge Diet: Diabetic Discharge Activity: Increase activity as tolerated Coding Level of Care Code ED Bathhouse Attendant for Chg Fwd Exam Detailed
[2022-05-02 17:33] LABS: Alanine Aminotransferase 8 U/L (0-41); Albumin Level 3.9 g/dL (3.5-5.2); Alkaline Phosphatase 112 IU/L (40-130); Anion Gap 27.9 (5-19); Aspartate Amino Transferase 9 U/L (0-40); Blood Urea Nitrogen 68 mg/dL (6-20); Calcium 9.5 mg/dL (8.5-10.5); Carbon Dioxide 20 mmol/L (22-29); Chloride 84 mmol/L (98-107); Creatine Phosphokinase 16 U/L (39-308); Globulin 4.8 g/dL (1.3-4.6); Glomerular Filtration Rate 11.2 mL/min (90-130); Glucose 228 mg/dL (65-115); Osmolality Calculated 293 mOsm/kg (285-295); Potassium 3.9 mmol/L (3.5-5.1); Sodium 128 mmol/L (136-145); Total Bilirubin 0.2 mg/dL (0.15-1.2); Total Protein 8.7 g/dL (6.6-8.7)
[2022-05-02 17:38] VITALS: BP 100/56; PULSE 110; RESP 18; O2SAT 100
[2022-05-02 17:45] LABS: Cortisol Random 17.29 ug/dL (2.47-19.5)
[2022-05-02 17:54] VITALS: BP 109/57; PULSE 105; RESP 18; O2SAT 96
[2022-05-02 18:31] VITALS: BP 103/64; PULSE 120; RESP 18
[2022-05-02] MEDS: sodium chloride 0.9% 1,000 ML 200 ML IV (19:07)
[2022-05-02 20:13] VITALS: BP 90/60; PULSE 120; RESP 18
[2022-05-02 23:50] VITALS: BP 91/54; PULSE 90; RESP 15; TEMP 36.9; O2SAT 100
[2022-05-03] VITALS (8 sets, daily range): BP systolic 90–96; BP diastolic 52–56; PULSE 81–112; RESP 16–18; TEMP 36.6–37.2; O2SAT 96–100
[2022-05-03] MEDS: sodium chloride 0.9% 1,000 ML 100 ML IV ×2 (00:12→05:18)
[2022-05-03 04:21] LABS: Add Urine Microscopic? NO; Charge for UA Resulting for Rev
[2022-05-03 04:22] LABS: Bilirubin Urine Neg (Negative); Blood Urine Neg (Negative); Glucose Urine UA Norm (Normal); Ketones Urine Negative (Negative); Leukocyte Esterase Urine Negative (Negative); Nitrate Urine Negative (Negative); Protein Urine Neg (Negative); Urine Appearance Clear (CLEAR); Urine Color Yellow (Yellow); Urobilinogen Urine Norm (Negative); pH Urine 5 (5-7)
[2022-05-03 05:12] LABS: Basophils # 0.1 10^3/uL (0.0-0.1); Basophils % 0.8 %; Eosinophils # 0.1 10^3/uL (0.0-0.8); Eosinophils % 2.2 %; Hematocrit 28.6 % (42.0-52.0); Hemoglobin 9.3 g/dL (11.7-16.6); Mean Corpuscular HGB Conc 32.5 g/dL (30.0-36.0); Mean Corpuscular Hemoglobin 26.3 pg (28.0-34.0); Mean Corpuscular Volume 80.8 fl (80-94); Mean Platelet Volume 7.8 fL (7.4-10.4); Monocytes % 17.4 %; Neutrophils % 60.7 %; Nucleated Red Blood Cells % 0 %; Platelet Count 466 10^3/cmm (130-400); Red Blood Count 3.54 10^6/uL (4.1-5.3); White Blood Count 5.9 10^3/uL (4.0-10.0)
[2022-05-03 05:26] LABS: Anion Gap 16.6 (5-19); Blood Urea Nitrogen 47 mg/dL (6-20); Calcium 8.4 mg/dL (8.5-10.5); Carbon Dioxide 21 mmol/L (22-29); Chloride 99 mmol/L (98-107); Glomerular Filtration Rate 22.5 mL/min (90-130); Glucose 104 mg/dL (65-115); Osmolality Calculated 289 mOsm/kg (285-295); Potassium 3.6 mmol/L (3.5-5.1); Sodium 133 mmol/L (136-145)
[2022-05-03] MEDS: hydrocortisone 10 mg Tablet 5 MG PO (10:45)
[2022-05-03] MEDS: fludrocortisone 0.1 mg Tablet PO (10:47)
[2022-05-03] MEDS: fluoxetine 20 mg Capsule PO (10:47)
[2022-05-03] MEDS: sodium chlor 0.9% + KCl 20 mEq 20 MEQ/1,000 ML BAG 100 MEQ IV ×2 (10:47→17:38)
--- NOTE | 2022-05-03 10:56 | PC.CHAP ---
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 [] Patient/Family/Request visit [] Outpatient visit [] Follow-up visit [] Physician referral [] Code/Alert [x] Routine visit [] Staff referral [] Actively dying [] Patient sleeping [] Family support [] [] Out of room [] Palliative care [] [] Receiving care in room [] Pre-surgical visit [] Trauma [] Long length of stay [] ICU visit [] Other: Relational/Emotional Strength [x] Patient feels connected with others/family/visitors/staff [] Distress [] Loneliness/isolation [] Abandonment Spirituality of Patient [x] Person of Swati [] Attends Je[employer] Witness of their Swati [x] Believes in Prayer [] Reads Bible or Hindu materials [] There are Spiritual issues to be addressed Technical Aid Interventions [] Prayer [] Active listening [] Non-anxious presence [] Spiritual/emotional support [] Crisis/trauma care [] Spiritual counseling [] Bereavement support [] Provided bereavement packet [] Provided Bible/devotional materials [] Provided toy/stuffed animal, coloring book to patient or family member [] Provided Communion [] Anointing/[place] [] Salvation [x] Completed spiritual assessment [] Other: Impact on Illness or Injury [] Angry [] Fearful [] Anxious [] Often cries [] Exhaustion [] Unable to work [] Unable to attend taoism [] Unable to walk/stand [] Unable to read [] Unable to drive [] Unable to eat/drink [] Unable to sleep [] Unable to be with family [] Patient intubated [] Other: Summary Time spent with patient 10 min
--- NOTE | 2022-05-03 13:17 | P.PN_ITS ---
Subjective Subjective: Pt doing well no events started steroids Vitals/I&O/Wt Last Vital Signs Temp 98.6 F 05/04/22 12:00 Pulse 98 05/04/22 12:00 Resp 16 05/04/22 12:00 BP 96/58 05/04/22 12:00 Pulse Ox 99 05/04/22 12:00 Physical Exam Narrative: S1s2 abd soft non focal neuro exam doing well on room air abd soft no vimiting dental acries Data : 05/04/22 09:55 05/04/22 06:15 A&P Assessment and plan (1) Duodenitis: Status: Acute (2) Hypovolemia: Status: Acute (3) Dehydration: Status: Acute (4) Hypokalemia: Status: Acute (5) MARCIE (acute kidney injury): Status: Acute (6) Type 2 diabetes mellitus: Status: Acute (7) H pylori ulcer: Status: Acute Plan continur iV fluids electrolytes replenished H pylori duodenitis detected Dc nicolas if marcie improves on IV fluids Attestations Medical Necessity Statement*: dc nicolas Time Spent in Patient Care: 15 Coding Level of Care Code Acute Cranberry Sorter for g Fwd Diagnoses Duodenitis K29.80 Hypovolemia E86.1 Dehydration E86.0 Hypokalemia E87.6 MARCIE (acute kidney injury) N17.9 Type 2 diabetes mellitus E11.9 H pylori ulcer K27.9; B96.81
[2022-05-03 17:08] LABS: Glucose Point of Care 98 mg/dL (70-110)
[2022-05-03 17:14] LABS: Hematocrit 29.3 % (42.0-52.0); Hemoglobin 9.6 g/dL (11.7-16.6)
[2022-05-03 21:28] LABS: Glucose Point of Care 145 mg/dL (70-110)
[2022-05-04] VITALS: BP 101/63; PULSE 97; RESP 18; TEMP 37; O2SAT 99
[2022-05-04 04:00] VITALS: BP 93/58; PULSE 91; RESP 17; TEMP 36.8; O2SAT 100
[2022-05-04 06:00] VITALS: PULSE 91
[2022-05-04 06:20] LABS: Glucose Point of Care 99 mg/dL (70-110)
[2022-05-04] MEDS: sodium chlor 0.9% + KCl 20 mEq 20 MEQ/1,000 ML BAG 100 MEQ IV (06:43)
[2022-05-04 06:48] LABS: Basophils # 0.1 10^3/uL (0.0-0.1); Basophils % 0.8 %; Eosinophils # 0.1 10^3/uL (0.0-0.8); Eosinophils % 1.5 %; Hematocrit 27.5 % (42.0-52.0); Hemoglobin 8.8 g/dL (11.7-16.6); Lymphocytes # 0.9 10^3/uL (0.8-4.8); Lymphocytes % 15.1 %; Mean Corpuscular Volume 81.1 fl (80-94); Mean Platelet Volume 7.7 fL (7.4-10.4); Monocytes # 0.9 10^3/uL (0.2-0.9); Monocytes % 14.6 %; Neutrophils # 3.93 10^3/uL (1.8-7.7); Neutrophils % 66.8 %; Nucleated Red Blood Cells % 0 %; Platelet Count 415 10^3/cmm (130-400); Red Blood Count 3.39 10^6/uL (4.1-5.3); Red Cell Distribution Width 17.2 % (12.1-15.1); White Blood Count 5.9 10^3/uL (4.0-10.0)
[2022-05-04 07:05] LABS: Anion Gap 13.6 (5-19); Blood Urea Nitrogen 22 mg/dL (6-20); Calcium 8.8 mg/dL (8.5-10.5); Carbon Dioxide 24 mmol/L (22-29); Chloride 104 mmol/L (98-107); Glomerular Filtration Rate 61.5 mL/min (90-130); Glucose 90 mg/dL (65-115); Magnesium 1.7 mg/dL (1.7-2.3); Osmolality Calculated 287 mOsm/kg (285-295); Phosphorus 1.9 mg/dL (2.5-4.5); Potassium 4.6 mmol/L (3.5-5.1); Sodium 137 mmol/L (136-145)
[2022-05-04 07:18] VITALS: PULSE 109; RESP 18; O2SAT 97
[2022-05-04 08:00] VITALS: BP 101/61; PULSE 94; RESP 18; TEMP 36.9; O2SAT 100
[2022-05-04] MEDS: fluoxetine 20 mg Capsule PO (08:34)
[2022-05-04] MEDS: hydrocortisone 10 mg Tablet 5 MG PO (08:35)
[2022-05-04] MEDS: fludrocortisone 0.1 mg Tablet PO (08:36)
[2022-05-04 10:24] LABS: Hematocrit 30.3 % (42.0-52.0); Hemoglobin 9.5 g/dL (11.7-16.6)
--- NOTE | 2022-05-04 10:30 | PM.DCS ---
Discharge Providers Date of Admission: 05/02/22 18:15 Date of Discharge: May 04, 2022 Attending Provider at Admission: Odalys Cartagena MD Attending Provider at Discharge: Odalys Cartagena MD Primary Care Provider: Karen Christianson MD Reason for Visit Reason for Visit: Kidney issues dr stone sent Hospital Course Hospital Course 41-year male with history of Crohn's disease, pyoderma gangrenosum status post in remission, status post colectomy with ileostomy bag, presented with chief complaint of worsening of dehydration and MARCIE. On arrival creatinine was around 5, with IV fluid hydration it has come down to 1.3. His blood pressure stays low and he has recently stopped his long-term steroids. I went ahead and put him on hydrocortisone 5 mg daily tablet in the morning along fludrocortisone 0.1 mg daily. Patient is stating Imodium and cholestyramine has not helped to slow down GI transit time and he has been emptying his bag 5-6 times a day which is his usual emptying frequency. He has not noticed active bleeding. He does take iron for iron deficiency anemia. Recent EGD done by Dr. Stone no active bleeding ulcers identified Biopsies showing H. pylori I will start patient on H. pylori treatment no evidence of malignancy dysplasia or celiac disease We will ask him to follow-up with Dr. Stone after 2 weeks I will start him on Protonix twice daily regimen along clarithromycin and metronidazole 10-day regimen Physical Exam Narrative: Euvolemic Nonfocal neuro exam Awake and alert Dental caries S1, S2 Blood pressure improved after IV fluid hydration Awake and alert Saturating well on room air Discharge Data Studies Completed and Pending Completed Studies During Hospitalization Category Date Time Status XR chest 1V portable [id number] Stat Exams 05/02/22 17:15 Completed Radiology Impressions Chest X-Ray 05/02/22 17:15 IMPRESSION: No acute findings. Laboratory Results WBC 5.9 10^3/uL (4.0-10.0) 05/04/22 06:15 RBC 3.39 10^6/uL (4.1-5.3) L 05/04/22 06:15 Hgb 9.5 g/dL (11.7-16.6) L 05/04/22 09:55 Hct 30.3 % (42.0-52.0) L 05/04/22 09:55 MCV 81.1 fl (80-94) 05/04/22 06:15 MCH 26.0 pg (28.0-34.0) L 05/04/22 06:15 MCHC 32.0 g/dL (30.0-36.0) 05/04/22 06:15 RDW 17.2 % (12.1-15.1) H 05/04/22 06:15 Plt Count 415 10^3/cmm (130-400) H 05/04/22 06:15 MPV 7.7 fL (7.4-10.4) 05/04/22 06:15 Neut % (Auto) 66.8 % 05/04/22 06:15 Lymph % (Auto) 15.1 % 05/04/22 06:15 [place] % (Auto) 14.6 % 05/04/22 06:15 Eos % (Auto) 1.5 % 05/04/22 06:15 Baso % (Auto) 0.8 % 05/04/22 06:15 Neut # (Auto) 3.93 10^3/uL (1.8-7.7) 05/04/22 06:15 Lymph # (Auto) 0.9 10^3/uL (0.8-4.8) 05/04/22 06:15 [place] # (Auto) 0.9 10^3/uL (0.2-0.9) 05/04/22 06:15 Eos # (Auto) 0.1 10^3/uL (0.0-0.8) 05/04/22 06:15 Baso # (Auto) 0.1 10^3/uL (0.0-0.1) 05/04/22 06:15 Nucleated RBC % (auto) 0 % 05/04/22 06:15 Nucleated RBCs # 0.0 /100WBC 05/04/22 06:15 Sodium 137 mmol/L (136-145) 05/04/22 06:15 Potassium 4.6 mmol/L (3.5-5.1) 05/04/22 06:15 Chloride 104 mmol/L (98-107) 05/04/22 06:15 Carbon Dioxide 24 mmol/L (22-29) 05/04/22 06:15 Anion Gap 13.6 (5-19) 05/04/22 06:15 BUN 22 mg/dL (6-20) H 05/04/22 06:15 Creatinine 1.3 mg/dL (0.7-1.2) H 05/04/22 06:15 GFR Calculation 61.5 mL/min (90-130) L 05/04/22 06:15 Glucose 90 mg/dL (65-115) 05/04/22 06:15 POC Glucose 99 mg/dL (70-110) 05/04/22 06:17 Calculated Osmolality 287 mOsm/kg (285-295) 05/04/22 06:15 Calcium 8.8 mg/dL (8.5-10.5) 05/04/22 06:15 Phosphorus 1.9 mg/dL (2.5-4.5) L 05/04/22 06:15 Magnesium 1.7 mg/dL (1.7-2.3) 05/04/22 06:15 Total Bilirubin 0.2 mg/dL (0.15-1.2) 05/02/22 16:57 AST 9 U/L (0-40) 05/02/22 16:57 ALT 8 U/L (0-41) 05/02/22 16:57 Alkaline Phosphatase 112 IU/L (40-130) 05/02/22 16:57 Creatine Kinase 16 U/L (39-308) L 05/02/22 16:57 C-Reactive Protein 11.0 mg/L (0.0-4.9) H 05/04/22 06:15 Total Protein 8.7 g/dL (6.6-8.7) 05/02/22 16:57 Albumin 3.9 g/dL (3.5-5.2) 05/02/22 16:57 Globulin 4.8 g/dL (1.3-4.6) H 05/02/22 16:57 Random Cortisol 17.29 ug/dL (2.47-19.5) 05/02/22 16:57 Urine Color Yellow (Yellow) 05/03/22 04:10 Urine Appearance Clear (CLEAR) 05/03/22 04:10 Urine pH 5 (5-7) 05/03/22 04:10 Ur Specific [place] 1.020 (1.005-1.030) 05/03/22 04:10 Urine Protein Neg (Negative) 05/03/22 04:10 Urine Glucose (UA) Norm (Normal) 05/03/22 04:10 Urine Ketones Negative (Negative) 05/03/22 04:10 Urine Blood Neg (Negative) 05/03/22 04:10 Urine Nitrate Negative (Negative) 05/03/22 04:10 Urine Bilirubin Neg (Negative) 05/03/22 04:10 Urine Urobilinogen Norm mg/dL (Negative) 05/03/22 04:10 Ur Leukocyte Esterase Negative (Negative) 05/03/22 04:10 Vitals Last Vital Signs Temp 98.4 F 05/04/22 08:00 Pulse 94 05/04/22 08:00 Resp 18 05/04/22 08:00 BP 101/61 05/04/22 08:00 Pulse Ox 100 05/04/22 08:00 Discharge Plan Discharge Patient Disposition: Home Condition: Stable Prescriptions: New fludrocortisone 0.1 mg Tablet 0.1 mg PO DAILY Qty: 90 3RF hydrocortisone 10 mg Tablet 5 mg PO DAILY Qty: 60 3RF metronidazole 500 mg tablet 500 mg PO Q8H 10 Days Qty: 30 0RF clarithromycin 500 mg tablet 500 mg PO BID 10 Days Qty: 20 0RF Continued folic acid 1 mg tablet 1 mg PO DAILY 0RF cyanocobalamin (vitamin B-12) 1,000 mcg/mL drops 1,000 mcg PO DAILY 0RF calcium carbonate [Calcium 500] 500 mg calcium (1,250 mg) tablet 500 mg PO DAILY 0RF ascorbic acid (vitamin C) 500 mg capsule 500 mg PO DAILY 0RF multivitamin [Daily Multi-Vitamin] Tablet 1 tab PO DAILY 0RF fluoxetine [Prozac] 20 mg capsule 20 mg PO DAILY Qty: 60 0RF ferrous fumarate 324 mg (106 mg iron) tablet 324 mg PO BID Qty: 60 0RF cholestyramine-aspartame 4 gram powder 4 g PO BID PRN (Reason: diarrhea) Qty: 239.4 0RF Rx Instructions: administer w/meal; avoid other meds within 1hr before or 4-6hr after dose Changed omeprazole 20 mg capsule,delayed release(DR/EC) 20 mg PO BIDWMEAL 56 Days Qty: 60 4RF Discharge Orders: Discharge Order (Routine); Ordered 05/04/22 Ordered By: Odalys Cartagena Referrals: Karen Christianson MD [Primary Care Provider] - 05/18/22 10:30 am Earl Santos MD [Physician] - 1-3 days Brian Stone MD [Physician] - 05/23/22 11:30 am Discharge Diet: Diabetic Discharge Activity: Increase activity as tolerated Patient Instructions: Opioid Safety Discharge Attestations Time Spent in Discharge Care*: less than 30 min Quality Metrics Clinical Quality Measures [ No reported AMI, CVA or VTE this stay] Coding Level of Care Code Acute Chg DC note
[2022-05-04 10:56] LABS: Glucose Point of Care 96 mg/dL (70-110)
[2022-05-04 12:00] VITALS: BP 96/58; PULSE 98; RESP 16; TEMP 37; O2SAT 99
== END 2022-05-04 13:19 | disposition home or self-care (01) ==
LOC: ER 17:18 → MEDSURG 19:25
PROVIDERS: Admitting Provider Internal Medicine; Emergency Provider Family Medicine; PCP Family Medicine; Visit Provider Internal Medicine
DX: E86.0 Dehydration (principal); N17.9 Acute kidney failure, unspecified; K50.90 Crohn's disease, unspecified, without complications; L88 Pyoderma gangrenosum; Z90.49 Acquired absence of other specified parts of digestive tract; K29.80 Duodenitis without bleeding; K27.9 Peptic ulcer, site unspecified, unspecified as acute or chronic, without hemorrhage or perforation; B96.81 Helicobacter pylori [H. pylori] as the cause of diseases classified elsewhere; E87.6 Hypokalemia
CPT/HCPCS: 36415; 36416; 71045; 80048; 80053; 81003; 82533; 82550; 82962; 83735; 84100; 85014; 85018; 85025; 86140; 93005; 96365; 96366; 99285; G0378; J7030; J8499

== ENCOUNTER → 2023-01-03 14:01 | Outpatient (BNVA) | payer BC, SELFPAY | PROVIDERS: PCP Family Medicine; Visit Provider Internal Medicine | DX: E11.9 Type 2 diabetes mellitus without complications (principal); E27.40 Unspecified adrenocortical insufficiency | CPT/HCPCS: 80048; 83036 ==

== ENCOUNTER → 2023-01-11 09:39 | Outpatient (BNVA) | payer BC, SELFPAY | PROVIDERS: PCP Family Medicine; Visit Provider Internal Medicine | DX: E11.9 Type 2 diabetes mellitus without complications (principal); E27.40 Unspecified adrenocortical insufficiency | CPT/HCPCS: 80048 ==

== ENCOUNTER → 2023-01-18 08:32 | Outpatient (BNVA) | payer BC, SELFPAY | PROVIDERS: PCP Family Medicine; Visit Provider Internal Medicine | DX: E27.40 Unspecified adrenocortical insufficiency (principal); E87.6 Hypokalemia | CPT/HCPCS: 80048 ==

== ENCOUNTER → 2023-02-28 10:38 | Outpatient (BNVA) | payer BC, SELFPAY | PROVIDERS: PCP Family Medicine; Visit Provider Internal Medicine | DX: E11.9 Type 2 diabetes mellitus without complications (principal); E27.40 Unspecified adrenocortical insufficiency | CPT/HCPCS: 80048; 83036 ==

== ENCOUNTER → 2023-06-04 09:03 | Outpatient (BNVA) | payer BC, SELFPAY | PROVIDERS: PCP Family Medicine; Visit Provider Internal Medicine | DX: E11.9 Type 2 diabetes mellitus without complications (principal); E27.40 Unspecified adrenocortical insufficiency; N17.9 Acute kidney failure, unspecified | CPT/HCPCS: 80053; 80061; 82043; 83036 ==

== ENCOUNTER → 2023-08-08 08:20 | Outpatient (BNVA) | payer BC, SELFPAY | PROVIDERS: PCP Family Medicine; Visit Provider Internal Medicine | DX: E27.40 Unspecified adrenocortical insufficiency (principal) | CPT/HCPCS: 80053 ==

== ENCOUNTER → 2023-08-09 08:11 | Outpatient (BNVA) | payer BC, SELFPAY | PROVIDERS: PCP Family Medicine; Visit Provider Internal Medicine | DX: E87.5 Hyperkalemia (principal) | CPT/HCPCS: 80048 ==

== ENCOUNTER → 2023-08-15 12:20 | Outpatient (BNVA) | payer BC, SELFPAY | PROVIDERS: PCP Family Medicine; Visit Provider Internal Medicine | DX: E11.9 Type 2 diabetes mellitus without complications (principal); E27.40 Unspecified adrenocortical insufficiency | CPT/HCPCS: 36415; 80053 ==

== ENCOUNTER → 2023-10-25 08:25 | Outpatient (BNVA) | payer BC, SELFPAY | PROVIDERS: PCP Family Medicine; Visit Provider Internal Medicine | DX: E11.9 Type 2 diabetes mellitus without complications (principal); E27.40 Unspecified adrenocortical insufficiency; E87.6 Hypokalemia | CPT/HCPCS: 82043; 83036 ==

== ENCOUNTER → 2023-10-29 09:12 | Outpatient (BNVA) | payer BC, SELFPAY | PROVIDERS: PCP Family Medicine; Visit Provider Internal Medicine | DX: E11.9 Type 2 diabetes mellitus without complications (principal); E27.40 Unspecified adrenocortical insufficiency; R74.01 Elevation of levels of liver transaminase levels; E87.5 Hyperkalemia | CPT/HCPCS: 80053; 80061; 83721 ==

== ENCOUNTER → 2024-01-23 10:26 | Outpatient (BNVA) | payer BC, SELFPAY | PROVIDERS: PCP Family Medicine; Visit Provider Internal Medicine | DX: E87.5 Hyperkalemia (principal) | CPT/HCPCS: 80048 ==

== ENCOUNTER → 2024-04-24 08:36 | Outpatient (BNVA) | payer BC, SELFPAY | PROVIDERS: PCP Family Medicine; Visit Provider Internal Medicine | DX: E11.9 Type 2 diabetes mellitus without complications (principal) | CPT/HCPCS: 80053; 80061; 82043; 83036; 83721 ==

== ENCOUNTER → 2024-05-01 09:36 | Outpatient (BNVA) | payer BC, SELFPAY | PROVIDERS: PCP Family Medicine; Visit Provider Internal Medicine | DX: E11.9 Type 2 diabetes mellitus without complications (principal); Z79.899 Other long term (current) drug therapy | CPT/HCPCS: 80053; 84681; 86337; 86341 ==

== ENCOUNTER → 2024-08-04 08:37 | Outpatient (BNVA) | payer BC, SELFPAY | PROVIDERS: PCP Family Medicine; Visit Provider Internal Medicine | DX: E11.9 Type 2 diabetes mellitus without complications (principal); E87.5 Hyperkalemia | CPT/HCPCS: 36415; 80053; 80061; 82044; 83036 ==

== ENCOUNTER → 2024-10-30 08:59 | Outpatient (BNVA) | payer BC, SELFPAY | PROVIDERS: PCP Family Medicine; Visit Provider Internal Medicine | DX: E11.9 Type 2 diabetes mellitus without complications (principal); E87.5 Hyperkalemia; E27.40 Unspecified adrenocortical insufficiency | CPT/HCPCS: 80053; 80061; 82043; 83036 ==

== ENCOUNTER → 2025-01-28 08:17 | Outpatient (BNVA) | payer BC, SELFPAY | PROVIDERS: PCP Family Medicine; Visit Provider Internal Medicine | DX: E11.9 Type 2 diabetes mellitus without complications (principal); E87.5 Hyperkalemia | CPT/HCPCS: 80053; 80061; 82043; 83036 ==

== ENCOUNTER → 2025-05-07 09:32 | Outpatient (BNVA) | payer BC, SELFPAY | PROVIDERS: PCP Family Medicine; Visit Provider Internal Medicine | DX: E27.40 Unspecified adrenocortical insufficiency (principal); E11.9 Type 2 diabetes mellitus without complications; R74.01 Elevation of levels of liver transaminase levels; E87.5 Hyperkalemia | CPT/HCPCS: 80053; 80061; 82043; 83036 ==

== ENCOUNTER → 2025-08-10 09:11 | Outpatient (BNVA) | payer BC, SELFPAY | PROVIDERS: PCP Family Medicine; Visit Provider Internal Medicine | DX: D50.9 Iron deficiency anemia, unspecified (principal); E87.5 Hyperkalemia; E11.9 Type 2 diabetes mellitus without complications | CPT/HCPCS: 80053; 80061; 82043; 83036; 83721 ==